=== PATIENT | female | born 1940 | race African-American/Black ===

== ENCOUNTER 2016-10-26 19:26 | Emergency (ER) | payer MEDICARE, MEDICAID ==
[~2016-10-26] VITALS: Ht 165.1 cm; Wt 74.8 kg
[2016-10-26 20:29] VITALS: BP 161/72
[2016-10-26] MEDS ORDERED: Acetaminophen 500mg (ES) tab ORAL ONE (20:30)
--- NOTE | 2016-10-26 20:34 | Emergency Room Report ---
History of Present Illness General Chief Complaint: Medication Refill Source: Patient (Cindy Hassan) Present Illness HPI 76-year-old female presents emergency department complaining of need for medication refill of her steroid eyedrops. Patient states she is out of her medication which she takes 3 times daily to subside chronic eye pain. Patient states she has a history of open angle glaucoma which ultimately took her vision 2 years ago. Patient denies new symptoms at this time denies recent injury or trauma to the eye denies discharge, crusting or foreign body sensation. Denies CP, Palpitations, LOC, AMS, dizziness, Changes in Vision, Sensation, paresthesias, or a sudden severe headache. (Cindy Hassan) Allergies: Coded Allergies: No Known Allergies (Verified Allergy, Unknown, 04/07/08) Patient History Past Medical History: see triage record Past Surgical History: none Pertinent Family History: none Now: No Immunizations: UTD Reviewed Nursing Documentation: PMH: Agreed, PSxH: Agreed (Cindy Hassan) Nursing Documentation-PMH Past Medical History: No History, Except For Hx Hypertension: Yes Hx Diabetes: No Hx Dialysis: Yes - HD:M-W-F, Lt upper arm shunt (Cindy Hassan) Review of Systems All Other Systems: negative except mentioned in HPI (Cindy Hassan) Physical Exam Vital Signs Date Time Temp Pulse Resp B/P Pulse Ox O2 Delivery O2 Flow Rate FiO2 10/26/16 20:04 98.1 88 18 181/91 99 Room Air Sp02 EP Interpretation: reviewed, normal General Appearance: no apparent distress, alert, GCS 15, non-toxic Head: normocephalic, atraumatic Eyes: right eye other - complete vision loss of the right eye x 2 years. , bilateral eye PERRL, bilateral eye normal inspection ENT: hearing grossly normal, normal pharynx, no angioedema, normal voice Neck: full range of motion, supple/symm/no masses Respiratory: chest non-tender, lungs clear, normal breath sounds, speaking full sentences Cardiovascular #1: regular rate, rhythm, no edema Cardiovascular #2: 2+ carotid (R), 2+ carotid (L), 2+ radial (R), 2+ radial (L) , 2+ dorsalis pedis (R), 2+ dorsalis pedis (L) Gastrointestinal: normal bowel sounds, non tender, soft, no guarding, no rebound Rectal: deferred Genitourinary: normal inspection, no CVA tenderness Musculoskeletal: back normal, gait/station normal, normal range of motion, non- tender, no calf tenderness Neurologic: alert, oriented x3, responsive, motor strength/tone normal, sensory intact, speech normal Psychiatric: judgement/insight normal, memory normal, mood/affect normal, no suicidal/homicidal ideation Reflexes: 4+ bicep (R), 4+ bicep (L), 4+ tricep (R), 4+ tricep (L), 4+ knee (R) , 4+ knee (L) Skin: normal color, no rash, warm/dry, well hydrated Lymphatic: no adenopathy (Cindy Hassan) Medical Decision Making PA Attestation Dr. rizvi is my supervising Physician whom patient management has been discussed with. (Cindy Hassan) Medicare Attestation The history of Italia Oropeza has been reviewed and management options for her have been examined and discussed by Dylon Florian. I have personally examined and interviewed the patient. (DYLON FLORIAN M.D.) Diagnostic Impression: Primary Impression: Encounter for medication refill ER Course Pt. 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 pt. reports taking Durezo eye drops in the right eye 3x daily. Ddx considered but are not limited to: drug seeking, OD, closed angle glaucoma, accidental OD. Vital signs: are WNL, pt. is afebrile H&PE are most consistent with need for medication refill. ORDERS: none required at this time, the diagnosis is clinical ED INTERVENTIONS: None required at this time. DISCHARGE: At this time pt. is stable for d/c to home. Will provide printed patient care instructions, and any necessary prescriptions. Care plan and follow up instructions have been discussed with the patient prior to discharge. (Cindy Hassan) Last Vital Signs Date Time Temp Pulse Resp B/P Pulse Ox O2 Delivery O2 Flow Rate FiO2 10/26/16 20:29 98.0 70 18 161/72 99 Room Air (Cindy Hassan) Disposition: HOME, SELF-CARE Condition: Stable Scripts Difluprednate (DUREZOL) 5 Ml Drops 1 DROP OP QID, #5 ML Prov: Cindy Hassan 10/26/16 Patient Instructions: Medicine Refill at the Emergency Department Additional Instructions: Take medications as directed. Follow up with [facility] in 48hours Return sooner to ED if new symptoms occur, or current symptoms become worse. Cindy Hassan Oct 26, 2016 20:34 DYLON FLORIAN M.D. Oct 29, 2016 05:29
[2016-10-26] MEDS ORDERED: DUREZOL5 M1 OP (20:35)
[2016-10-26 20:43] VITALS: BP 142/68
== END 2016-10-26 20:43 | disposition home or self-care (01) ==
LOC: EMR 20:16
DX: Z76.0 Encounter for issue of repeat prescription (principal); I10 Essential (primary) hypertension
CPT/HCPCS: 99283

== ENCOUNTER 2016-11-10 10:30 | Emergency (ER) | payer MEDICARE, MEDICAID ==
[~2016-11-10] VITALS: Ht 165.1 cm; Wt 72.6 kg
[~2016-11-10 10:30] MED LIST: DUREZOL5 M1 OP
[2016-11-10 11:05] VITALS: BP 172/82
--- NOTE | 2016-11-10 12:21 | Diagnostic Imaging Report ---
Indications: Fall, left-sided abdominopelvic trauma and pain Technique: Continuous helical CT imaging of the abdomen and pelvis was performed with automatic exposure control on a Siemens sensation [address] scanner. Axial, coronal, sagittal images reconstructed at 3 mm slice thickness. No oral or IV contrast was administered per requesting physician's order, despite no contraindications listed in either submitted clinical data or tech note, and despite standard protocol to the contrary. CTDI volume(s): 16 mGy Total DLP: 789 mGy-cm Findings: Comparison: None Lack of IV contrast limits evaluation of solid visceral parenchymal. Unenhanced liver, spleen, pancreas, adrenal glands, kidneys demonstrate no obvious focal intrinsic or surrounding abnormality, aside from multiple circumscribed low-attenuation masses in both renal cortices. Liver 2 cm in length, surface contour diffusely nodular. Calcified stones in gallbladder lumen, mural thickening. Scattered arterial mural calcifications. Vascular patency indeterminate. Small hiatal hernia. Moderate distention of stomach. Remainder of gastrointestinal tract nondistended. Multiple left colonic diverticula. No obvious associated acute inflammatory change. No extraluminal gas or fluid collections. Urinary bladder collapsed. Mural thickening not excludable. Remainder visualized abdominopelvic anatomy demonstrates no other obvious acute abnormality. Patchy groundglass opacities dependent portion right lung base. Small bulla left lung base. Heart enlarged. Disc space narrowing with marginal osteophyte formation, vacuum phenomenon lower lumbar spine. 1 cm anterior subluxation of L4 and L5. No associated pars interarticularis defect. No acute fracture identified. impression: Limited examination demonstrating no overt evidence of acute solid visceral injury. Lack of IV contrast limits evaluation, however, and subtle but potentially significant abnormalities may be missed. Examination therefore deemed nondiagnostic for evaluation of acute visceral injury and repeat imaging with IV contrast, per standard protocol, recommended. Hepatomegaly with evidence of cirrhosis Cholelithiasis. Nonspecific mild gallbladder wall thickening. Correlate clinically. Bilateral cortical masses--cysts versus neoplasm Arteriosclerosis Colonic diverticulosis Degenerative spondylosis Nonspecific groundglass opacity right lung base--atelectasis versus edema versus inflammation
[2016-11-10 12:32] VITALS: BP 162/73
[2016-11-10] MEDS ORDERED: Tylenol #3 tab (300mg/30mg) ORAL ONE (12:45)
[2016-11-10 12:47] VITALS: BP 162/73
[2016-11-10] MEDS ORDERED: ACETAMINOPHEN-1 EAC1 ORAL (12:48)
--- NOTE | 2016-11-11 15:10 | Emergency Room Report ---
History of Present Illness General Chief Complaint: Multiple Trauma/Fall Source: Patient Present Illness HPI 76-year-old female presents to ED complaining of left hip pain. States one week ago she had a mechanical trip and fall on the sidewalk, landing on her left hip. Patient notes increased pain in the left hip and unable to walk since. Pain as throbbing, 10 out of 10, radiating down the left leg. No other aggravating relieving factors. Denies any other injuries. 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 Hx Hypertension: Yes Hx Pacemaker: No Hx Asthma: No Hx COPD: No Hx Diabetes: No Hx Cancer: No Hx Gastrointestinal Problems: No Hx Dialysis: Yes - HD:M-W-F, Lt upper arm shunt History Of Psychiatric Problem: No Hx Neurological Problems: No Hx Cerebrovascular Accident: No Hx Seizures: No Review of Systems All Other Systems: negative except mentioned in HPI Physical Exam Vital Signs Date Time Temp Pulse Resp B/P Pulse Ox O2 Delivery O2 Flow Rate FiO2 11/10/16 11:01 98.4 74 18 172/82 99 Room Air Sp02 EP Interpretation: reviewed, normal General Appearance: no apparent distress, alert, GCS 15, non-toxic Head: normocephalic Eyes: bilateral eye PERRL, bilateral eye normal inspection ENT: normal ENT inspection Neck: normal inspection Respiratory: normal inspection Cardiovascular #1: normal inspection Gastrointestinal: normal inspection Rectal: deferred Genitourinary: no CVA tenderness Musculoskeletal: pelvis stable, other - L hip pain Neurologic: alert, oriented x3, responsive, motor strength/tone normal, sensory intact, speech normal Psychiatric: normal inspection Skin: normal inspection Lymphatic: normal inspection Medical Decision Making Diagnostic Impression: Primary Impression: Contusion, hip and thigh Qualified Codes: S70.02XA - Contusion of left hip, initial encounter; S70.12XA - Contusion of left thigh, initial encounter ER Course Hospital Course 76-year-old female presents to ED with left hip and thigh pain s/p trip and fall Differential diagnoses include: Fracture, dislocation, sprain, contusion Clinical course Patient placed on stretcher. After initial history and physical, I ordered pain medications and CT pelvis and x-ray of left femur CT read shows no acute fracture/dislocation. On reassessment pain is improved Diagnosis -left hip and thigh contusion Stable and discharged to home with prescription for tylenol #3. apply ice, keep elevated. weight bear as tolerated. Followup with PMD. Return to ED if symptoms recur or worsen Other X-Ray Diagnostic Results Other X-Ray Diagnostic Results : X-Ray Ordered: L femur EP Interpretation: Yes Findings: no fractures, no dislocation, no soft tissue swelling Number of Views: 3 CT/MRI/US Diagnostic Results CT/MRI/US Diagnostic Results : Imaging Test Ordered: CT Pelvis Impression no acute process Last Vital Signs Date Time Temp Pulse Resp B/P Pulse Ox O2 Delivery O2 Flow Rate FiO2 11/10/16 12:47 98.4 78 18 162/73 99 Room Air Status: improved Disposition: HOME, SELF-CARE Condition: Stable Scripts Acetaminophen With Codeine (T#3) (TYLENOL #3 TAB*) Y Tab 1 TAB ORAL Q8H Y for For Pain, #20 TAB Prov: HANS SOLOMON M.D. 11/10/16 Patient Instructions: Contusion, [id number] HANS SOLOMON M.D. Nov 11, 2016 15:10
--- NOTE | 2016-11-12 11:45 | Diagnostic Imaging Report ---
Indications: Fall, left thigh injury and pain Technique: 2 views left thigh. Findings: Comparison: None No fracture, dislocation, joint space widening , surrounding soft tissue swelling/foreign body/other abnormality, or other acute changes are identified. Scattered arterial mural calcifications are present. IMPRESSION: No evidence of acute injury to the left thigh. Arteriosclerosis
== END 2016-11-10 12:52 | disposition home or self-care (01) ==
LOC: EMR 11:53
DX: S70.02XA Contusion of left hip, initial encounter (principal); S70.12XA Contusion of left thigh, initial encounter; W01.0XXA Fall on same level from slipping, tripping and stumbling without subsequent striking against object, initial encounter; Y92.480 Sidewalk as the place of occurrence of the external cause; I10 Essential (primary) hypertension; H54.41 Blindness, right eye, normal vision left eye; K74.60 Unspecified cirrhosis of liver; K80.20 Calculus of gallbladder without cholecystitis without obstruction; K57.30 Diverticulosis of large intestine without perforation or abscess without bleeding; M47.816 Spondylosis without myelopathy or radiculopathy, lumbar region; R91.8 Other nonspecific abnormal finding of lung field
CPT/HCPCS: 74176; 99284

== ENCOUNTER 2017-03-10 12:51 | Emergency (ER) | payer MEDICARE, MEDICAID ==
[~2017-03-10] VITALS: Ht 162.6 cm; Wt 72.6 kg
[~2017-03-10 12:51] MED LIST changes: +ACETAMINOPHEN-1 EAC1 ORAL
[2017-03-10 13:00] VITALS: BP 176/79
[2017-03-10] MEDS ORDERED: Morphine Sulfate 4mg/ml Inj IVP ONE ×2 (13:30→17:00)
[2017-03-10] MEDS ORDERED: Famotidine 20 MG/ 2ML VIAL IVP ONE (13:30)
[2017-03-10 13:34] LABS: MEAN CORPUSCULAR HEMOGLOBIN 34.5 PG (27.0-31.0); MEAN CORPUSCULAR HGB CONC 30.6 G/DL (32.0-36.0); MEAN CORPUSCULAR VOLUME 113 FL (80-99); MEAN PLATELET VOLUME 9.1 FL (6.5-10.1); PLATELET COUNT 130 K/UL (150-450); RED BLOOD COUNT 3.47 M/UL (4.20-5.40); RED CELL DISTRIBUTION WIDTH 17.1 % (11.6-14.8)
[2017-03-10 13:57] LABS: TROPONIN I < 0.30 ng/mL (<=0.30)
[2017-03-10 14:11] LABS: ANISOCYTOSIS 1+; BAND NEUTROPHILS % (MANUAL) 1 % (0-8); BASOPHILS % (MANUAL) 0 % (0-2); EOSINOPHILS % (MANUAL) 0 % (0-3); HYPOCHROMASIA 1+; LYMPHOCYTES % (MANUAL) 20 % (20-45); MACROCYTES 1+; NEUTROPHILS % (MANUAL) 70 % (45-75); PLATELET ESTIMATE DECREASED; PLATELET MORPHOLOGY NORMAL; TOTAL CELLS COUNTED 100
[2017-03-10 15:00] VITALS: BP 164/79
[2017-03-10 15:18] LABS: ALANINE AMINOTRANSFERASE 22 U/L (3-33); ALBUMIN/GLOBULIN RATIO 0.9 (1.0-2.7); ANION GAP 16 (5-15); ASPARTATE AMINO TRANSFERASE 37 U/L (5-40); CALCIUM 8.4 mg/dL (8.6-10.2); CARBON DIOXIDE 30 mEQ/L (20-30); CHLORIDE 98 mEQ/L (98-107); CREATININE 6.8 mg/dL (0.5-0.9); HEMOLYSIS 8; LIPASE 36 U/L (< 60); POTASSIUM 5.2 mEQ/L (3.4-4.9); SODIUM 144 mEQ/L (135-145); TOTAL PROTEIN 7.1 g/dL (6.6-8.7)
[2017-03-10 15:28] LABS: CKMB 2.1 ng/mL (< 3.8)
[2017-03-10] MEDS ORDERED: Sodium Polystyrene Sulfonate 15gm Powder ORAL ONE (17:00)
[2017-03-10 17:48] VITALS: BP 132/68
--- NOTE | 2017-03-10 19:08 | Emergency Room Report ---
History of Present Illness General Chief Complaint: Abdominal Pain Source: Patient Present Illness HPI 77-year-old female presents to ED for evaluation. States that for one day she' s had abdominal pain with vomiting. Started today. Feels her stomach is distended. She is passing gas. Denies fevers or chills. Denies chest pain. Notes some shortness of breath. Patient states she gets dialysis Sunday and Sunday. No other aggravating relieving factors. 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 Hx Hypertension: Yes Hx Pacemaker: No Hx Asthma: No Hx COPD: No Hx Diabetes: No Hx Cancer: No Hx Gastrointestinal Problems: No Hx Dialysis: Yes - HD:M-W-F, Lt upper arm shunt Hx Neurological Problems: No Hx Cerebrovascular Accident: No Hx Seizures: No Review of Systems All Other Systems: negative except mentioned in HPI Physical Exam Vital Signs Date Time Temp Pulse Resp B/P Pulse Ox O2 Delivery O2 Flow Rate FiO2 03/10/17 12:56 98.4 86 16 178/79 96 Room Air Sp02 EP Interpretation: reviewed, normal General Appearance: no apparent distress, alert, GCS 15, non-toxic Head: normocephalic, atraumatic Eyes: bilateral eye PERRL, bilateral eye normal inspection ENT: hearing grossly normal, normal pharynx, no angioedema, normal voice Neck: full range of motion, supple/symm/no masses Respiratory: chest non-tender, lungs clear, normal breath sounds, speaking full sentences Cardiovascular #1: regular rate, rhythm, no edema Cardiovascular #2: 2+ carotid (R), 2+ carotid (L), 2+ radial (R), 2+ radial (L) , 2+ dorsalis pedis (R), 2+ dorsalis pedis (L) Gastrointestinal: normal bowel sounds, soft, no guarding, distended, tenderness Rectal: deferred Genitourinary: normal inspection, no CVA tenderness Musculoskeletal: back normal, gait/station normal, normal range of motion, non- tender Neurologic: alert, oriented x3, responsive, motor strength/tone normal, sensory intact, speech normal Psychiatric: judgement/insight normal, memory normal, mood/affect normal, no suicidal/homicidal ideation Reflexes: 3+ bicep (R), 3+ bicep (L), 3+ tricep (R), 3+ tricep (L), 3+ knee (R) , 3+ knee (L) Skin: normal color, no rash, warm/dry, well hydrated Lymphatic: no adenopathy Medical Decision Making Diagnostic Impression: Primary Impression: Ileus ER Course Hospital Course 77-year-old female presents to ED with abdominal distention, pain and vomiting Differential diagnosis includes-appendicitis, cholecystitis, small bowel obstruction, gastritis, Clinical course Patient placed on stretcher. After initial history and physical I ordered labs , IV fluids, pain medications and CT scan Labs - no leukocytosis, BUN/Cr elevated, trop negative, K 5.2 CT scan shows distended GB with stones. surrounding fluid ? ascites vs cholecystitis. ileus EKG - NSR, twave inversions in lateral leads, no acute ischemic changes CXR - pulmonary congestion Discussed with nephrology regarding the potassium. He agreed that Kayexalate is sufficient at this time given patient completed dialysis yesterday. I discussed findings of the CT with patient namely the possible cholecystitis. Patient has normal LFTs and patient is not experiencing right upper quadrant pain. Patient's pain is diffuse with distention. More likely due to the ileus noted on CT. I recommended patient be admitted. Patient states she prefers to be discharged at this time Patient states she wishes to go home. Understands the risks of leaving. Patient has competency to make her own decisions. Signed AMA form. Patient given Kayexalate in ED. Given additional pain medication I feel this is a highly complex case requiring extensive working including EKG/ Rhythm strip, Xray/CT/US, Blood/urine lab work, repeat exams while in ED, and administration of strong opiates/narcotics for pain control, admission to hospital or close patient follow up. Diagnosis - ileus patient left AMA Labs Test 03/10/17 13:20 03/10/17 14:45 White Blood Count 5.0 K/UL (4.8-10.8) Red Blood Count 3.47 M/UL (4.20-5.40) Hemoglobin 12.0 G/DL (12.0-16.0) Hematocrit 39.1 % (37.0-47.0) Mean Corpuscular Volume 113 FL (80-99) Mean Corpuscular Hemoglobin 34.5 PG (27.0-31.0) Mean Corpuscular Hemoglobin Concent 30.6 G/DL (32.0-36.0) Red Cell Distribution Width 17.1 % (11.6-14.8) Platelet Count 130 K/UL (150-450) Mean Platelet Volume 9.1 FL (6.5-10.1) Neutrophils (%) (Auto) % (45.0-75.0) Lymphocytes (%) (Auto) % (20.0-45.0) Monocytes (%) (Auto) % (1.0-10.0) Eosinophils (%) (Auto) % (0.0-3.0) Basophils (%) (Auto) % (0.0-2.0) Differential Total Cells Counted 100 Neutrophils % (Manual) 70 % (45-75) Lymphocytes % (Manual) 20 % (20-45) Monocytes % (Manual) 9 % (1-10) Eosinophils % (Manual) 0 % (0-3) Basophils % (Manual) 0 % (0-2) Band Neutrophils 1 % (0-8) Platelet Estimate Decreased Platelet Morphology Normal Hypochromasia 1+ Anisocytosis 1+ Macrocytosis 1+ Troponin I < 0.30 ng/mL (<=0.30) Sodium Level 144 mEQ/L (135-145) Potassium Level 5.2 mEQ/L (3.4-4.9) Chloride Level 98 mEQ/L (98-107) Carbon Dioxide Level 30 mEQ/L (20-30) Anion Gap 16 (5-15) Blood Urea Nitrogen 30 mg/dL (7-23) Creatinine 6.8 mg/dL (0.5-0.9) Estimat Glomerular Filtration Rate mL/min (>60) Glucose Level 94 mg/dL (74-106) Calcium Level 8.4 mg/dL (8.6-10.2) Total Bilirubin 0.6 mg/dL (0.0-1.2) Aspartate Amino Transf (AST/SGOT) 37 U/L (5-40) Alanine Aminotransferase (ALT/SGPT) 22 U/L (3-33) Alkaline Phosphatase 179 U/L (35-104) Creatine Kinase MB 2.1 ng/mL (< 3.8) Total Protein 7.1 g/dL (6.6-8.7) Albumin 3.5 g/dL (3.5-5.2) Globulin 3.6 g/dL Albumin/Globulin Ratio 0.9 (1.0-2.7) Lipase 36 U/L (< 60) EKG Diagnostic Results Rate: normal Rhythm: NSR ST Segments: other - twave inversions in lateral leads ASA given to the pt in ED: No Rhythm Strip Diag. Results EP Interpretation: yes Rhythm: NSR, no PVC's, no ectopy Chest X-Ray Diagnostic Results EP Interpretation: Yes Findings: no pneumothorax, no acute cardiopulmonary disease, other - pulmonary congestion Number of Views: 1 CT/MRI/US Diagnostic Results CT/MRI/US Diagnostic Results : Imaging Test Ordered: CT A/P Impression distended GB with gallstones. surrounding fluid - ascites vs cholecystitis. ileus. Last Vital Signs Date Time Temp Pulse Resp B/P Pulse Ox O2 Delivery O2 Flow Rate FiO2 03/10/17 17:48 98.2 68 13 132/68 95 Room Air Status: unchanged Disposition: AGAINST MEDICAL ADVICE Condition: Stable HANS SOLOMON M.D. March 10, 2017 19:08
--- NOTE | 2017-03-11 09:18 | Diagnostic Imaging Report ---
Indications: Abdominal pain and distention, nausea and vomiting Technique: Continuous helical CT imaging of the abdomen and pelvis was performed with automatic exposure control following administration of nonionic IV contrast only, on a Siemens sensation [address] scanner. Axial and coronal images were reconstructed at 5 mm slice thickness. No oral contrast was administered per requesting physician's order, presumably due to vomiting. CTDI volume(s): 17 mGy Total DLP: 913 mGy-cm Findings: Comparison: 11/10/2016 Lack of oral contrast limits evaluation of gastrointestinal tract. Small hiatal hernia. Multiple small bowel loops demonstrate varying degrees of distention and fluid content. Associated mural thickening of one or more loops not excludable. No obvious discrete transition point. Appendix unremarkable. Gas and feces throughout nondilated colon. Multiple diverticula in descending and sigmoid colon. Associated mild segmental mural thickening within the sigmoid colon not excludable. No adjacent stranding, associated extraluminal gas or fluid collections. Minimal ascites adjacent to liver, spleen, gallbladder. Liver again demonstrates diffuse surface contour nodularity. No obvious focal lesion identified. Gallbladder distended and contains multiple small calcified stones. No obvious mural thickening. Pancreatic duct is mildly, diffusely prominent, measuring up to 4 mm diameter. Bile ducts not overtly dilated. No obvious associated stone or mass identified. Spleen remains upper limits of normal in size. No focal lesions identified. Both kidneys are atrophic with multiple circumscribed low attenuation cortical masses. One of these masses, 2.7 cm emanating from the posterior upper pole cortex of left kidney, and demonstrates mildly increased and heterogeneous attenuation relative to the rest. Prominent arterial mural calcifications. Significant bilateral renal artery stenoses not excludable. Remainder visualized abdominopelvic anatomy demonstrates no other obvious acute abnormality. Heart remains enlarged. Linear and patchy consolidative opacities have developed in both lung bases, right greater than left. Narrowing of the L4-5 disc space again noted with 7 mm anterior spondylolisthesis, facet sclerosis and hypertrophy, apparent spinal stenosis. Fractures of the left superior and inferior ischiopubic rami now noted with some periosteal callus formation, no adjacent soft tissue swelling. Impression: Small bowel findings as described, not overtly obstructive in appearance, most compatible with ileus, may reflect underlying enteritis Cirrhosis with stigmata of portal hypertension including borderline splenomegaly, ascites Gallbladder distention with stones. No obvious mural thickening. Adjacent fluid probably represents ascites. Correlate clinically. Mild pancreatic duct dilation, etiology indeterminate Bilateral renal atrophy with multiple cortical cysts, reflect end-stage renal disease. Posterior upper pole left renal lesion most likely septated/proteinaceous cyst. Neoplasm not excludable. Ultrasound correlation recommended. Colonic diverticulosis Arteriosclerosis Pulmonary bibasal subsegmental atelectasis. Superimposed focal pneumonia right lung base not excludable Cardiomegaly L4-5 degenerative spondylosis with grade 1 anterior spondylolisthesis, apparent spinal stenosis Interval development of left superior and inferior ischiopubic ramus fractures, with some evidence of healing, nonacute Written preliminary report placed in PACS 03/10/2017 at 1648
--- NOTE | 2017-03-11 09:41 | Diagnostic Imaging Report ---
Indications: Shortness of breath Technique: Portable AP chest Findings: Comparison: None Cardiac silhouette enlarged. Pulmonary vascular redistribution. Mild bilateral interstitial prominence. Discrete linear density right lung base. No pleural abnormality. Aortic arch calcified. IMPRESSION: Findings compatible with mild congestive heart failure Superimposed subsegmental atelectasis versus scarring right lung base Aortosclerosis
--- NOTE | 2017-03-11 09:51 | Diagnostic Imaging Report ---
Indications: Abdominal distention. Technique: AP view of the abdomen Findings: Comparison: None Paucity of small bowel gas. Gas and feces throughout nondilated colon and rectum.. Prominent arterial mural calcifications. Small rounded calcifications in pelvis compatible with phleboliths.. No abnormal calcific or soft tissue densities are demonstrated. Degenerative changes suggested in the lumbar spine.. IMPRESSION: Paucity of small bowel gas, nonspecific. Dilated fluid-filled bowel in the setting of either ileus or obstruction not excludable. Correlate clinically. No other evidence of acute abdominopelvic disease Arteriosclerosis Degenerative spondylosis.
== END 2017-03-10 17:52 | disposition left against medical advice (07) ==
LOC: EMR 13:15
DX: K56.7 Ileus, unspecified (principal); R06.02 Shortness of breath; I10 Essential (primary) hypertension; H54.41 Blindness, right eye, normal vision left eye; Z99.2 Dependence on renal dialysis; N28.9 Disorder of kidney and ureter, unspecified; I51.7 Cardiomegaly; M47.896 Other spondylosis, lumbar region; M43.16 Spondylolisthesis, lumbar region; J98.11 Atelectasis; I70.90 Unspecified atherosclerosis; K57.90 Diverticulosis of intestine, part unspecified, without perforation or abscess without bleeding; K80.80 Other cholelithiasis without obstruction; N28.1 Cyst of kidney, acquired
CPT/HCPCS: 36415; 71010; 74000; 74177; 80053; 82553; 83690; 84484; 85007; 85025; 93005; 96374; 96375; 99284; J2270; J2405; J7040; Q9967; S0028

== ENCOUNTER 2018-10-22 12:21 | Inpatient (IN) | payer MEDICARE, MEDICAID ==
[~2018-10-22] VITALS: Ht 162.6 cm; Wt 61.5 kg
--- NOTE | 2018-10-22 12:44 | NUR ---
ED Nurse Note: Pt walked in due to SOB since this morning A + O x4. Ambulatory. Hx of rt eye blindness. Has dialysis M, W, F. Fistula located on the upper left arm. when she walked in, sating at 83%. Initiated 2L of oxygen via nasal cannula. O2 sat at 96%.
--- NOTE | 2018-10-22 12:56 | Emergency Room Report ---
History of Present Illness General Chief Complaint: Dyspnea/Respdistress Source: Patient Present Illness HPI Patient presents with complaints of shortness of breath Reports that she had dialysis on Sunday Is unclear regarding the specific days of her dialysis Over the past night however patient having progressive worsening of shortness of breath Patient has also had a cough with some phlegm production denies any fevers or chills denies any neck pain Denies any abdominal pain Denies any recent travel Allergies: Coded Allergies: No Known Allergies (Verified Allergy, Unknown, 04/07/08) Patient History Past Medical History: see triage record Pertinent Family History: none Now: No Reviewed Nursing Documentation: PMH: Agreed; PSxH: Agreed Nursing Documentation-PMH Past Medical History: No History, Except For Hx Cardiac Problems: Yes - Right eye blindness Hx Hypertension: Yes Hx Pacemaker: No Hx Asthma: No Hx COPD: No Hx Diabetes: No Hx Cancer: No Hx Gastrointestinal Problems: No Hx Dialysis: Yes - HD:M-W-F, Lt upper arm shunt Hx Neurological Problems: No Hx Cerebrovascular Accident: No Hx Seizures: No Review of Systems All Other Systems: negative except mentioned in HPI Physical Exam Vital Signs Date Time Temp Pulse Resp B/P (MAP) Pulse Ox O2 Delivery O2 Flow Rate FiO2 10/22/18 12:41 99.9 100 23 184/120 89 Room Air Sp02 EP Interpretation: reviewed, normal General Appearance: mild distress - Mildly tachypneic Head: normocephalic, atraumatic Eyes: bilateral eye PERRL, bilateral eye EOMI ENT: hearing grossly normal, normal pharynx, TMs + canals normal, uvula midline Neck: full range of motion, supple, no meningismus, no bony tend Respiratory: no respiratory distress, no retraction, no accessory muscle use, crackles - Bilaterally, tachypneic Cardiovascular #1: normal peripheral pulses, regular rate, rhythm, no edema, no gallop, no JVD, no murmur Gastrointestinal: normal bowel sounds, non tender, soft, no mass, no organomegaly, non-distended, no guarding, no hernia, no pulsatile mass, no rebound Genitourinary: no CVA tenderness Musculoskeletal: normal inspection Neurologic: oriented x3, responsive, 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 nml as tested, motor strength/ tone normal, sensory intact Psychiatric: mood/affect normal Skin: normal color, no rash, warm/dry, palpation normal Lymphatic: normal inspection, no adenopathy Medical Decision Making Diagnostic Impression: Primary Impression: Dyspnea Additional Impressions: Pulmonary congestion Renal failure ER Course Patient is a fairly complex patient with multiple differential to consideration including but not limited to cardiac cardiopulmonary and vascular emergencies Patient's blood work reveals elevated potassium level Kidney function is consistent with renal failure,, patient initially refused chest x-ray Requesting breathing treatment This was provided Patient eventually did obtain chest x-ray We also had to have the patient talk to family before cough rating Patient appears to have pulmonary congestion consistent with her renal failure requiring more urgent dialysis and is admitted for further inpatient care Labs Test 10/22/18 12:50 White Blood Count 5.8 K/UL (4.8-10.8) Red Blood Count 3.32 M/UL (4.20-5.40) Hemoglobin 10.2 G/DL (12.0-16.0) Hematocrit 35.0 % (37.0-47.0) Mean Corpuscular Volume 105 FL (80-99) Mean Corpuscular Hemoglobin 30.7 PG (27.0-31.0) Mean Corpuscular Hemoglobin Concent 29.1 G/DL (32.0-36.0) Red Cell Distribution Width 19.5 % (11.6-14.8) Platelet Count 119 K/UL (150-450) Mean Platelet Volume 7.3 FL (6.5-10.1) Neutrophils (%) (Auto) 59.1 % (45.0-75.0) Lymphocytes (%) (Auto) 26.0 % (20.0-45.0) Monocytes (%) (Auto) 13.2 % (1.0-10.0) Eosinophils (%) (Auto) 0.4 % (0.0-3.0) Basophils (%) (Auto) 1.4 % (0.0-2.0) Sodium Level 139 MMOL/L (136-145) Potassium Level 5.5 MMOL/L (3.5-5.1) Chloride Level 104 MMOL/L (98-107) Carbon Dioxide Level 25 MMOL/L (21-32) Anion Gap 10 mmol/L (5-15) Blood Urea Nitrogen 34 mg/dL (7-18) Creatinine 6.9 MG/DL (0.55-1.30) Estimat Glomerular Filtration Rate mL/min (>60) Glucose Level 76 MG/DL (74-106) Calcium Level 8.1 MG/DL (8.5-10.1) Total Bilirubin 0.4 MG/DL (0.2-1.0) Aspartate Amino Transf (AST/SGOT) 49 U/L (15-37) Alanine Aminotransferase (ALT/SGPT) 14 U/L (12-78) Alkaline Phosphatase 129 U/L (46-116) Total Creatine Kinase 72 U/L (26-308) Creatine Kinase MB 1.4 NG/ML (0.0-3.6) Creatine Kinase MB Relative Index 1.9 Troponin I 0.062 ng/mL (0.000-0.056) Pro-B-Type Natriuretic Peptide > 68182 pg/mL (0-125) Total Protein 8.3 G/DL (6.4-8.2) Albumin 2.8 G/DL (3.4-5.0) Globulin 5.5 g/dL Albumin/Globulin Ratio 0.5 (1.0-2.7) EKG Diagnostic Results Rate: normal Rhythm: NSR ST Segments: other - nonspecific ST T wave changes Rhythm Strip Diag. Results EP Interpretation: yes Rate: 77 Rhythm: NSR, no PVC's, no ectopy Chest X-Ray Diagnostic Results Chest X-Ray Diagnostic Results : Chest X-Ray Ordered: Yes # of Views/Limited/Complete: 1 View Indication: Shortness of Breath EP Interpretation: Yes Interpretation: no consolidation, no pneumothorax, other - Small left-sided effusion, pulmonary costion Impression: Other - Pulmonary congestion Electronically Signed by: Yoana Short DO Last Vital Signs Date Time Temp Pulse Resp B/P (MAP) Pulse Ox O2 Delivery O2 Flow Rate FiO2 10/22/18 12:41 99.9 100 23 184/120 89 Room Air Status: improved Disposition: ADMITTED INPATIENT Condition: Serious Referrals: NON PHYSICIAN (PCP) Yoana Short DO Oct 22, 2018 12:56
--- NOTE | 2018-10-22 12:56 | NUR ---
ED Nurse Note: Blood has been collected and sent to lab.
[2018-10-22] MEDS ORDERED: Nitroglycerin 2% oint pkt TOPIC ONE (13:00)
[2018-10-22 13:06] VITALS: BP 195/92
--- NOTE | 2018-10-22 13:09 | NUR ---
ED Nurse Note: Pt refused CXR. Will notify
[2018-10-22] MEDS ORDERED: Ipratropium 0.02% Inh Soln 2.5ml UD HHN ONE (13:15)
[2018-10-22] MEDS ORDERED: Albuterol ud Inhalation HHN ONE (13:15)
[2018-10-22 13:21] LABS: BASOPHILS % (AUTO) 1.4 % (0.0-2.0); EOSINOPHILS % (AUTO) 0.4 % (0.0-3.0); HEMOGLOBIN 10.2 G/DL (12.0-16.0); MEAN CORPUSCULAR VOLUME 105 FL (80-99); MONOCYTES % (AUTO) 13.2 % (1.0-10.0); NEUTROPHILS % (AUTO) 59.1 % (45.0-75.0); PLATELET COUNT 119 K/UL (150-450); RED BLOOD COUNT 3.32 M/UL (4.20-5.40); RED CELL DISTRIBUTION WIDTH 19.5 % (11.6-14.8); WHITE BLOOD COUNT 5.8 K/UL (4.8-10.8)
--- NOTE | 2018-10-22 13:32 | NUR ---
ED Nurse Note: Breathing tx currently being completed.
[2018-10-22 13:39] LABS: ANION GAP 10 mmol/L (5-15); BLOOD UREA NITROGEN 34 mg/dL (7-18); CALCIUM 8.1 MG/DL (8.5-10.1); CARBON DIOXIDE 25 MMOL/L (21-32); CHLORIDE 104 MMOL/L (98-107); CREATININE 6.9 MG/DL (0.55-1.30); POTASSIUM 5.5 MMOL/L (3.5-5.1); SODIUM 139 MMOL/L (136-145)
--- NOTE | 2018-10-22 13:47 | NUR ---
ED Nurse Note: Spoke to dtr Vale on the phone and notified her of her mom's condition. Per dtr, she wants her mom to stay at the hopsital. She spoke with her mom. Mom will stay.
[2018-10-22 13:52] LABS: ALANINE AMINOTRANSFERASE 14 U/L (12-78); ALBUMIN 2.8 G/DL (3.4-5.0); ALBUMIN/GLOBULIN RATIO 0.5 (1.0-2.7); ALKALINE PHOSPHATASE 129 U/L (46-116); ASPARTATE AMINO TRANSFERASE 49 U/L (15-37); BILIRUBIN,TOTAL 0.4 MG/DL (0.2-1.0); CKMB 1.4 NG/ML (0.0-3.6); CREATINE KINASE 72 U/L (26-308)
--- NOTE | 2018-10-22 13:52 | NUR ---
ED Nurse Note: Gave telephone report to GLADIS Matthews. waiting for admission packet and bed to be ready. Will continue to monitor.
--- NOTE | 2018-10-22 13:55 | NUR ---
ED Nurse Note: Notified radiology of pt agreeing to CXR once more.
--- NOTE | 2018-10-22 14:02 | NUR ---
ED Nurse Note: Xray at the bedside.
--- NOTE | 2018-10-22 14:09 | NUR ---
ED Nurse Note: Tried sending pt up, bed unavailable.
--- NOTE | 2018-10-22 14:13 | NUR ---
ED Nurse Note: As per ERMD, okay for pt to go up to unit. Waiting for bed to be available.
--- NOTE | 2018-10-22 14:30 | NUR ---
NURSE NOTES: Received patient via gurney, Report given by GLADIS Hilton. Pt is lying down on bed, weak but in stable condition.Pt is awake, alert, and oriented x4. Pt is on 2 liter Nasal Cannula and breathing is even and unlabored. No signs and symptoms of acute distress at this time. Belongings checked at bed side. Bed is in lowest position with brake engaged, side rails up x2, and bed alarm on. Call light within reach. Will contact attending doctor for orders.
--- NOTE | 2018-10-22 14:31 | NUR ---
ED Nurse Note: Transferred pt up to tele unit. No acute distress noted. Left w/ all of her belongings.
--- NOTE | 2018-10-22 15:00 | NUR ---
NURSE NOTES: patient received. patient in no acute distress at this timem alyssa complains of 10/10 pain at this time. i called Dr. loving who ordered morphine for patient . patient bed in lowest position and locked. call light within reach. will continue to monitor Addendum: 10/23/18 at 0604 by VANITA GILBERT RN wrong time.
[2018-10-22] MEDS ORDERED: Metoprolol 25mg tab ORAL SCH ×2 (15:15→16:30)
--- NOTE | 2018-10-22 15:20 | Consultation ---
Consult Note Consult Note Chief Complaint: Dyspnea/Respdistress HPI Patient presents with complaints of shortness of breath Reports that she had dialysis on Sunday Is unclear regarding the specific days of her dialysis Over the past night however patient having progressive worsening of shortness of breath Patient has also had a cough with some phlegm production denies any fevers or chills denies any neck pain Denies any abdominal pain Denies any recent travel No Known Allergies (Verified Allergy, Unknown, 04/07/08) Hx Cardiac Problems: Yes - Right eye blindness Hx Hypertension: Yes Hx Dialysis: Yes - HD:M-W-F, Lt upper arm shunt examined appeard comfortable data reviewed complains of chronic back pain more than SOB Assessment/Plan Mild CHF ESRD Anemia of CKD Elevated troponin Hypertensive kidney disease ASA Renal diet HD in am 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
--- NOTE | 2018-10-22 15:25 | History and Physical ---
History of Present Illness General Date patient seen: Oct 22, 2018 Time patient seen: 15:09 Reason for Hospitalization: Dyspnea/Respdistress Present Illness HPI 78 yo female with h/o esrd on hd presents with SOB. States patient her last HD was on Sunday. Patient is poor historian. Patient has been having progressive sob over the past 2 days. Admits to coughs with white sputum productiong. Denies fevers/chills/nausea/vomiting/abd pain/cp. CXR reviewed showing pulm vasc congestion. nephrology consulted for HD by ED social hx reviewed, denies smoking, alcohol or drug use code status reviewed: full code past fam hx reviewed, denies any sig past fam hx Allergies: Coded Allergies: No Known Allergies (Verified Allergy, Unknown, 04/07/08) Medication History Scheduled Difluprednate (Durezol), 1 DROP OP QID Scheduled PRN Acetaminophen With Codeine (T#3) (Tylenol #3 Tab*), 1 TAB ORAL Q8H PRN for For Pain Patient History History Provided By: Patient, Medical Record Healthcare decision maker Resuscitation status Full Code Advanced Directive on File Review of Systems ROS Narrative 14 point ROS reviewed and negative except per the above HPI Physical Exam General Appearance: WD/WN, alert, mild distress Lines, tubes and drains: peripheral HEENT: normocephalic, atraumatic, mucous membranes moist, PERRL Neck: non-tender, normal alignment, supple, normal inspection Respiratory/Chest: chest wall non-tender, lungs clear, other - mild crackles appreciated b/l lung kwong Cardiovascular/Chest: normal peripheral pulses, normal rate, regular rhythm Abdomen: normal bowel sounds, non tender, soft, no organomegaly, no mass Extremities: normal range of motion, non-tender, normal inspection Skin Exam: normal pigmentation, warm/dry Neurologic: health plan specialist II-XII grossly normal, no motor/sensory deficits, alert, oriented x 3, responsive, normal mood/affect Last 24 Hour Vital Signs Date Time Temp Pulse Resp B/P (MAP) Pulse Ox O2 Delivery O2 Flow Rate FiO2 10/22/18 14:32 98.1 102 20 182/73 99 Nasal Cannula 2.0 10/22/18 13:50 99 16 99 Nasal Cannula 2.0 28 10/22/18 13:21 28 10/22/18 13:21 102 18 97 Nasal Cannula 2.0 28 10/22/18 13:21 102 18 Nasal Cannula 2.0 95 10/22/18 13:06 101 30 Nasal Cannula 2.0 95 10/22/18 13:06 99.8 101 30 95 Nasal Cannula 2.0 10/22/18 13:04 195/92 10/22/18 12:41 99.9 100 23 184/120 89 Room Air Laboratory Tests Test 10/22/18 12:50 White Blood Count 5.8 K/UL (4.8-10.8) Red Blood Count 3.32 M/UL (4.20-5.40) L Hemoglobin 10.2 G/DL (12.0-16.0) L Hematocrit 35.0 % (37.0-47.0) L Mean Corpuscular Volume 105 FL (80-99) H Mean Corpuscular Hemoglobin 30.7 PG (27.0-31.0) Mean Corpuscular Hemoglobin Concent 29.1 G/DL (32.0-36.0) L Red Cell Distribution Width 19.5 % (11.6-14.8) H Platelet Count 119 K/UL (150-450) L Mean Platelet Volume 7.3 FL (6.5-10.1) Neutrophils (%) (Auto) 59.1 % (45.0-75.0) Lymphocytes (%) (Auto) 26.0 % (20.0-45.0) Monocytes (%) (Auto) 13.2 % (1.0-10.0) H Eosinophils (%) (Auto) 0.4 % (0.0-3.0) Basophils (%) (Auto) 1.4 % (0.0-2.0) Sodium Level 139 MMOL/L (136-145) Potassium Level 5.5 MMOL/L (3.5-5.1) H Chloride Level 104 MMOL/L (98-107) Carbon Dioxide Level 25 MMOL/L (21-32) Anion Gap 10 mmol/L (5-15) Blood Urea Nitrogen 34 mg/dL (7-18) H Creatinine 6.9 MG/DL (0.55-1.30) H Estimat Glomerular Filtration Rate mL/min (>60) Glucose Level 76 MG/DL (74-106) Calcium Level 8.1 MG/DL (8.5-10.1) L Total Bilirubin 0.4 MG/DL (0.2-1.0) Aspartate Amino Transf (AST/SGOT) 49 U/L (15-37) H Alanine Aminotransferase (ALT/SGPT) 14 U/L (12-78) Alkaline Phosphatase 129 U/L (46-116) H Total Creatine Kinase 72 U/L (26-308) Creatine Kinase MB 1.4 NG/ML (0.0-3.6) Creatine Kinase MB Relative Index 1.9 Troponin I 0.062 ng/mL (0.000-0.056) Pro-B-Type Natriuretic Peptide > 77356 pg/mL (0-125) H Total Protein 8.3 G/DL (6.4-8.2) H Albumin 2.8 G/DL (3.4-5.0) L Globulin 5.5 g/dL Albumin/Globulin Ratio 0.5 (1.0-2.7) L Height (Feet): 5 Height (Inches): 4.00 Weight (Pounds): 133 Medications Current Medications Medications (Trade) Dose Ordered Sig/Joesph Route PRN Reason Start Time Stop Time Status Last Admin Dose Admin Acetaminophen/ Hydrocodone Bitart ([place] 5/325) 1 tab Q4H PRN ORAL Moderate Pain (Pain Scale 4-6) 10/22/18 15:06 10/29/18 15:05 Aspirin (ASA) 81 mg DAILY ORAL 10/23/18 09:00 11/22/18 08:59 UNV Docusate Sodium (Colace) 100 mg THREE TIMES A DAY ORAL 10/22/18 18:00 11/21/18 17:59 UNV Pantoprazole (Protonix) 40 mg EVERY 12 HOURS ORAL 10/22/18 21:00 11/21/18 20:59 UNV Sevelamer Carbonate (Renvela) 800 mg THREE TIMES A DAY ORAL 10/22/18 18:00 11/21/18 17:59 UNV Assessment/Plan Status: stable Assessment/Plan #Acute Hypoxic Respiratory Failure #Fluids Overload #ESRD on HD #Pulmonary Vascular Congestion #Hyperkalemia - K 5.5 - hd per nephro, nephro consulted by ED for HD - fluids overload, requiring 2L NCL - tele - ekg reviewed, nsr, no acute st t wave changes #HTN Emergency - bp >200/100s in ED during evaluation - sob with mild elevated troponin/bun in renal failure pt - imdur given in ED - pt poor historian, does not know all home meds - HD per nephro - metoprolol 25mg bid, hydralazine 25 mg q6hr, imdur - hold off on acei considering hyperkalemia diet: renal hd DVT Prophylaxis: SCD, HSQ Code Status: Full Hospital Classification Declaration: Based on this initial evaluation, and depending on the patient's clinical course, I anticipate that this patient will require hospitalization for 2-3 days for dialysis, sx control, htn emergency, sob and close respiratory/hemodynamic monitoring. I have reviewed all imaging, labs and medications Disposition: Once the patient is stable to leave the hospital, I anticipate the patient will likely be discharged to the following environment: home with HH vs SNF I spent 61 minutes on this patient's case, and 40 minutes were dedicated to counseling and/or care coordination. Discussed with patient/family, nursing staff, SW/CM regarding clinical status, treatment course, and disposition planning. Time of note may not reflect time of encounter. --- Date of Discussion: 10/22/18 A [id number] discussion with the patient regarding the patient's advanced care planning took place during this hospitalization on the above date. The discussion included the explanation and discussion of advance directives and associated forms/documents, as well as the patient's current code status. We also discussed at length the patient's medical conditions (both acute and chronic), general prognosis, treatment options, and goals of care. The following summarizes the discussion: Advance Care Planning/Goals of Care: - Will attempt to fill out an AD and/or POLST with the patient prior to discharge, if not already completed - Continue current evaluation and management of any acute and chronic medical issues - Will continue to support the patient/family - Will continue to discuss both short- and long-term goals of care DPOA-HC/Surrogate Decision Maker: None currently appointed Code Status: Full Code AD Forms/Documents Completed: Deferred A total of 31 minutes was spent on this discussion, including counseling, answering questions, and completing, if any, pertinent advanced care planning forms/documents. Lucie Polk MD Oct 22, 2018 15:25
[2018-10-22 16:00] VITALS: BP 146/69
[2018-10-22] MEDS ORDERED: Imdur 30mg tab ORAL SCH (16:30)
[2018-10-22] MEDS: Docusate 100mg cap ORAL SCH (17:17)
[2018-10-22] MEDS: HydrALAZINE 50mg tab ORAL SCH ×2 (17:17→23:40)
[2018-10-22] MEDS: Norco 5mg/325mg tab ORAL PRN (17:18)
--- NOTE | 2018-10-22 19:12 | NUR ---
HAND-OFF: Report given to GLADIS Boogie.
--- NOTE | 2018-10-22 19:20 | NUR ---
NURSE NOTES: NURSE NOTES: patient received. patient in no acute distress at this time patient complains of 10/10 pain at this time. i called Dr. loving who ordered morphine for patient . patient bed in lowest position and locked. call light within reach. will continue to monitor.
[2018-10-22 20:00] VITALS: BP 141/80
[2018-10-22] MEDS: Metoprolol 25mg tab ORAL SCH (20:14)
[2018-10-22] MEDS: Heparin 5000 units/ml inj SUBQ SCH (20:15)
[2018-10-22] MEDS ORDERED: Heparin 5000 units/ml inj SUBQ SCH (21:00)
--- NOTE | 2018-10-22 21:02 | Consultation ---
History of Present Illness General Date patient seen: Oct 22, 2018 Chief Complaint: Dyspnea/Respdistress Present Illness Allergies: Coded Allergies: No Known Allergies (Verified Allergy, Unknown, 04/07/08) Medication History Scheduled Difluprednate (Durezol), 1 DROP OP QID Scheduled PRN Acetaminophen With Codeine (T#3) (Tylenol #3 Tab*), 1 TAB ORAL Q8H PRN for For Pain Patient History Healthcare decision maker Resuscitation status Full Code Advanced Directive on File Physical Exam Last 24 Hour Vital Signs Date Time Temp Pulse Resp B/P (MAP) Pulse Ox O2 Delivery O2 Flow Rate FiO2 10/22/18 20:14 101 146/69 10/22/18 17:24 101 146/69 10/22/18 17:24 146/69 10/22/18 17:17 146/69 10/22/18 16:00 96 10/22/18 16:00 98.9 101 20 146/69 (94) 95 10/22/18 15:09 Nasal Cannula 2.0 10/22/18 14:32 98.1 102 20 182/73 99 Nasal Cannula 2.0 10/22/18 13:50 99 16 99 Nasal Cannula 2.0 28 10/22/18 13:21 28 10/22/18 13:21 102 18 97 Nasal Cannula 2.0 28 10/22/18 13:21 102 18 Nasal Cannula 2.0 95 10/22/18 13:06 101 30 Nasal Cannula 2.0 95 10/22/18 13:06 99.8 101 30 195/92 95 Nasal Cannula 2.0 10/22/18 13:04 195/92 10/22/18 12:41 99.9 100 23 184/120 89 Room Air Laboratory Tests Test 10/22/18 12:50 White Blood Count 5.8 K/UL (4.8-10.8) Red Blood Count 3.32 M/UL (4.20-5.40) L Hemoglobin 10.2 G/DL (12.0-16.0) L Hematocrit 35.0 % (37.0-47.0) L Mean Corpuscular Volume 105 FL (80-99) H Mean Corpuscular Hemoglobin 30.7 PG (27.0-31.0) Mean Corpuscular Hemoglobin Concent 29.1 G/DL (32.0-36.0) L Red Cell Distribution Width 19.5 % (11.6-14.8) H Platelet Count 119 K/UL (150-450) L Mean Platelet Volume 7.3 FL (6.5-10.1) Neutrophils (%) (Auto) 59.1 % (45.0-75.0) Lymphocytes (%) (Auto) 26.0 % (20.0-45.0) Monocytes (%) (Auto) 13.2 % (1.0-10.0) H Eosinophils (%) (Auto) 0.4 % (0.0-3.0) Basophils (%) (Auto) 1.4 % (0.0-2.0) Sodium Level 139 MMOL/L (136-145) Potassium Level 5.5 MMOL/L (3.5-5.1) H Chloride Level 104 MMOL/L (98-107) Carbon Dioxide Level 25 MMOL/L (21-32) Anion Gap 10 mmol/L (5-15) Blood Urea Nitrogen 34 mg/dL (7-18) H Creatinine 6.9 MG/DL (0.55-1.30) H Estimat Glomerular Filtration Rate mL/min (>60) Glucose Level 76 MG/DL (74-106) Calcium Level 8.1 MG/DL (8.5-10.1) L Total Bilirubin 0.4 MG/DL (0.2-1.0) Aspartate Amino Transf (AST/SGOT) 49 U/L (15-37) H Alanine Aminotransferase (ALT/SGPT) 14 U/L (12-78) Alkaline Phosphatase 129 U/L (46-116) H Total Creatine Kinase 72 U/L (26-308) Creatine Kinase MB 1.4 NG/ML (0.0-3.6) Creatine Kinase MB Relative Index 1.9 Troponin I 0.062 ng/mL (0.000-0.056) C-Reactive Protein, Quantitative 1.5 mg/dL (0.00-0.90) H Pro-B-Type Natriuretic Peptide > 47970 pg/mL (0-125) H Total Protein 8.3 G/DL (6.4-8.2) H Albumin 2.8 G/DL (3.4-5.0) L Globulin 5.5 g/dL Albumin/Globulin Ratio 0.5 (1.0-2.7) L Height (Feet): 5 Height (Inches): 4.00 Weight (Pounds): 133 Medications Current Medications Medications (Trade) Dose Ordered Sig/Joesph Route PRN Reason Start Time Stop Time Status Last Admin Dose Admin Acetaminophen/ Hydrocodone Bitart ([place] 5/325) 1 tab Q4H PRN ORAL Moderate Pain (Pain Scale 4-6) 10/22/18 15:06 10/29/18 15:05 10/22/18 17:18 Aspirin (ASA) 81 mg DAILY ORAL 10/23/18 09:00 11/22/18 08:59 Clonidine HCl (Catapres Tab) 0.1 mg Q4H PRN ORAL bp over 160 syst 10/22/18 16:03 11/21/18 16:02 Docusate Sodium (Colace) 100 mg THREE TIMES A DAY ORAL 10/22/18 18:00 11/21/18 17:59 10/22/18 17:17 Heparin Sodium (Porcine) (Heparin 5000 units/ml) 5,000 units EVERY 12 HOURS SUBQ 10/22/18 21:00 11/21/18 20:59 10/22/18 20:15 Hydralazine HCl (Apresoline) 50 mg Q6HR ORAL 10/22/18 18:00 11/21/18 17:59 10/22/18 17:17 Isosorbide Mononitrate (Imdur) 30 mg DAILY ORAL 10/23/18 09:00 11/22/18 08:59 Metoprolol Tartrate (Lopressor) 25 mg Q12HR ORAL 10/22/18 21:00 11/21/18 20:59 10/22/18 20:14 Morphine Sulfate (Morphine Sulfate) 2 mg Q4H PRN IVP For Pain 10/22/18 21:00 10/29/18 20:59 UNV Ondansetron HCl (Zofran) 4 mg Q6H PRN IVP Nausea & Vomiting 10/22/18 16:04 11/21/18 16:03 Pantoprazole (Protonix) 40 mg EVERY 12 HOURS ORAL 10/22/18 21:00 11/21/18 20:59 10/22/18 20:14 Sevelamer Carbonate (Renvela) 800 mg THREE TIMES A DAY ORAL 10/22/18 18:00 11/21/18 17:59 10/22/18 17:17 Assessment/Plan Assessment/Plan Hematology Consultatio REQ : Kat[facility]: Anemia of chronic disease DOS: 10/22/17 Present Illness HPI 78 yo female with h/o esrd on hd presents with SOB. States patient her last HD was on Sunday. Patient is poor historian. Patient has been having progressive sob over the past 2 days. Admits to coughs with white sputum productiong. Denies fevers/chills/nausea/vomiting/abd pain/cp. CXR reviewed showing pulm vasc congestion. Nephrology consulted for HD by ED Social hx reviewed, denies smoking, alcohol or drug use Code status reviewed: full code Past fam hx reviewed, denies any sig past fam hx Allergies: No Known Allergies (Verified Allergy, Unknown, 04/07/08) Difluprednate (Durezol), 1 DROP OP QID Scheduled PRN History Provided By: Patient, Medical Record Healthcare decision maker Resuscitation status Full Code Advanced Directive on File Review of Systems ROS Narrative 14 point ROS reviewed and negative except per the above HPI Physical Exam General Appearance: WD/WN, alert, mild distress Lines, tubes and drains: peripheral HEENT: normocephalic, atraumatic, mucous membranes moist, PERRL Neck: non-tender, normal alignment, supple, normal inspection Respiratory/Chest: - mild crackles appreciated b/l lung kwong Cardiovascular/Chest: normal peripheral pulses, normal rate, regular rhythm Abdomen: normal bowel sounds, non tender, soft Extremities: normal range of motion, non-tender, normal inspection Skin Exam: normal pigmentation, warm/dry 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, no motor/sensory deficits Last 24 Hour Vital Signs Date Time Temp Pulse Resp B/P (MAP) Pulse Ox O2 Delivery O2 Flow Rate FiO2 10/22/18 14:32 98.1 102 20 182/73 99 Nasal Cannula 2.0 10/22/18 13:50 99 16 99 Nasal Cannula 2.0 28 10/22/18 13:21 28 10/22/18 13:21 102 18 97 Nasal Cannula 2.0 28 10/22/18 13:21 102 18 Nasal Cannula 2.0 95 10/22/18 13:06 101 30 Nasal Cannula 2.0 95 10/22/18 13:06 99.8 101 30 / 95 Nasal Cannula 2.0 10/22/18 13:04 195/92 10/22/18 12:41 99.9 100 23 184/120 89 Room Air Laboratory Tests Test 10/22/18 12:50 White Blood Count 5.8 K/UL (4.8-10.8) Red Blood Count 3.32 M/UL (4.20-5.40) L Hemoglobin 10.2 G/DL (12.0-16.0) L Hematocrit 35.0 % (37.0-47.0) L Mean Corpuscular Volume 105 FL (80-99) H Mean Corpuscular Hemoglobin 30.7 PG (27.0-31.0) Mean Corpuscular Hemoglobin Concent 29.1 G/DL (32.0-36.0) L Red Cell Distribution Width 19.5 % (11.6-14.8) H Platelet Count 119 K/UL (150-450) L Mean Platelet Volume 7.3 FL (6.5-10.1) Neutrophils (%) (Auto) 59.1 % (45.0-75.0) Lymphocytes (%) (Auto) 26.0 % (20.0-45.0) Monocytes (%) (Auto) 13.2 % (1.0-10.0) H Eosinophils (%) (Auto) 0.4 % (0.0-3.0) Basophils (%) (Auto) 1.4 % (0.0-2.0) Sodium Level 139 MMOL/L (136-145) Potassium Level 5.5 MMOL/L (3.5-5.1) H Chloride Level 104 MMOL/L (98-107) Carbon Dioxide Level 25 MMOL/L (21-32) Anion Gap 10 mmol/L (5-15) Blood Urea Nitrogen 34 mg/dL (7-18) H Creatinine 6.9 MG/DL (0.55-1.30) H Estimat Glomerular Filtration Rate mL/min (>60) Glucose Level 76 MG/DL (74-106) Calcium Level 8.1 MG/DL (8.5-10.1) L Total Bilirubin 0.4 MG/DL (0.2-1.0) Aspartate Amino Transf (AST/SGOT) 49 U/L (15-37) H Alanine Aminotransferase (ALT/SGPT) 14 U/L (12-78) Alkaline Phosphatase 129 U/L (46-116) H Total Creatine Kinase 72 U/L (26-308) Creatine Kinase MB 1.4 NG/ML (0.0-3.6) Creatine Kinase MB Relative Index 1.9 Troponin I 0.062 ng/mL (0.000-0.056) Pro-B-Type Natriuretic Peptide > 32218 pg/mL (0-125) H Total Protein 8.3 G/DL (6.4-8.2) H Albumin 2.8 G/DL (3.4-5.0) L Globulin 5.5 g/dL Albumin/Globulin Ratio 0.5 (1.0-2.7) L Height (Feet): 5 Height (Inches): 4.00 Weight (Pounds): 133 Medications Current Medications Medications (Trade) Dose Ordered Sig/Joesph Route PRN Reason Start Time Stop Time Status Last Admin Dose Admin Acetaminophen/ Hydrocodone Bitart ([place] 5/325) 1 tab Q4H PRN ORAL Moderate Pain (Pain Scale 4-6) 10/22/18 15:06 10/29/18 15:05 Aspirin (ASA) 81 mg DAILY ORAL 10/23/18 09:00 11/22/18 08:59 UNV Docusate Sodium (Colace) 100 mg THREE TIMES A DAY ORAL 10/22/18 18:00 11/21/18 17:59 UNV Pantoprazole (Protonix) 40 mg EVERY 12 HOURS ORAL 10/22/18 21:00 11/21/18 20:59 UNV Sevelamer Carbonate (Renvela) 800 mg THREE TIMES A DAY ORAL 10/22/18 18:00 11/21/18 17:59 UNV Assessment/Plan # Anemia of chronic disease -- hgb appeox 8-10 baseline, likely related to ckd --> anemia panel has been reviewed --> results are pending --> hgb goal >7 # Thrombocytopenia appeox 100-150k, decreased from baseline --> smear pending --> hep and hiv ordered # Acute Hypoxic Respiratory Failure --> as per pulm # Fluids Overload # ESRD on HD # Pulmonary Vascular Congestion # Hyperkalemia --> K 5.5, hd per nephro, nephro consulted by ED for HD --> appreciate sheree recs # HTN Emergency --> bp >200/100s in ED during evaluation --> sob with mild elevated troponin/bun in renal failure pt --> imdur given in ED --> holding off on acei/arb Appreciate consultation greatly! Bennie Scott MD Oct 22, 2018 21:02
[2018-10-22] MEDS: Morphine Sulfate 4mg/ml Inj (IV/IM USE ONLY) IVP PRN (21:07)
[2018-10-23] VITALS: BP 147/78
[2018-10-23] MEDS: HydrALAZINE 50mg tab ORAL SCH ×3 (06:30→18:09)
[2018-10-23 06:56] LABS: BASOPHILS % (AUTO) 0.8 % (0.0-2.0); EOSINOPHILS % (AUTO) 0.1 % (0.0-3.0); HEMATOCRIT 31.1 % (37.0-47.0); HEMOGLOBIN 9.2 G/DL (12.0-16.0); LYMPHOCYTES % (AUTO) 25.2 % (20.0-45.0); MEAN CORPUSCULAR VOLUME 105 FL (80-99); MONOCYTES % (AUTO) 11.8 % (1.0-10.0); NEUTROPHILS % (AUTO) 62.1 % (45.0-75.0); PLATELET COUNT 118 K/UL (150-450); RED BLOOD COUNT 2.98 M/UL (4.20-5.40); RED CELL DISTRIBUTION WIDTH 18.5 % (11.6-14.8); WHITE BLOOD COUNT 5.6 K/UL (4.8-10.8)
--- NOTE | 2018-10-23 07:27 | General Progress Note ---
Assessment/Plan Status: stable Assessment/Plan #Acute Hypoxic Respiratory Failure #Fluids Overload #ESRD on HD #Pulmonary Vascular Congestion #Hyperkalemia - K 5.5 - hd per nephro, nephro consulted by ED for HD - fluids overload, requiring 2L NCL - tele - ekg reviewed, nsr, no acute st t wave changes #HTN Emergency - bp >200/100s in ED during evaluation - sob with mild elevated troponin/bun in renal failure pt - imdur given in ED - pt poor historian, does not know all home meds - HD per nephro - metoprolol 25mg bid, hydralazine 25 mg q6hr, imdur started - hold off on acei considering hyperkalemia - bp improving.. appreciate nephrology recs, can adjust bp meds accordingly diet: renal hd DVT Prophylaxis: SCD, HSQ Code Status: Full Hospital Classification Declaration: Based on this initial evaluation, and depending on the patient's clinical course, I anticipate that this patient will require hospitalization for 2-3 days for dialysis, sx control, htn emergency, sob and close respiratory/hemodynamic monitoring. I have reviewed all imaging, labs and medications Disposition: Once the patient is stable to leave the hospital, I anticipate the patient will likely be discharged to the following environment: home with HH vs SNF I spent 55 minutes on this patient's case, and 40 minutes were dedicated to counseling and/or care coordination. Discussed with patient/family, nursing staff, SW/CM regarding clinical status, treatment course, and disposition planning. Time of note may not reflect time of encounter. --- Date of Discussion: 10/22/18 A xfki-mi-adkg discussion with the patient regarding the patient's advanced care planning took place during this hospitalization on the above date. The discussion included the explanation and discussion of advance directives and associated forms/documents, as well as the patient's current code status. We also discussed at length the patient's medical conditions (both acute and chronic), general prognosis, treatment options, and goals of care. The following summarizes the discussion: Advance Care Planning/Goals of Care: - Will attempt to fill out an AD and/or POLST with the patient prior to discharge, if not already completed - Continue current evaluation and management of any acute and chronic medical issues - Will continue to support the patient/family - Will continue to discuss both short- and long-term goals of care DPOA-HC/Surrogate Decision Maker: None currently appointed Code Status: Full Code AD Forms/Documents Completed: Deferred A total of 31 minutes was spent on this discussion, including counseling, answering questions, and completing, if any, pertinent advanced care planning forms/documents. Subjective Date patient seen: Oct 23, 2018 Time patient seen: 07:24 Allergies: Coded Allergies: No Known Allergies (Verified Allergy, Unknown, 04/07/08) Subjective f/u esrd on hd fluid overload, hypoxic resp failure, HTN emergency on ncl 2L pending HD still denies any cp no acute events overnight stable denies any ALEXIS/abd pain/nausea/vomiting/diarrhea/constipation bp improving ROS: 14 point ROS reviewed and negative except per the above Objective Last 24 Hour Vital Signs Date Time Temp Pulse Resp B/P (MAP) Pulse Ox O2 Delivery O2 Flow Rate FiO2 10/23/18 06:30 147/78 10/23/18 04:00 98.1 10/23/18 04:00 124 10/23/18 00:00 97.9 22 147/78 (101) 96 10/22/18 23:40 146/69 10/22/18 21:00 Nasal Cannula 2.0 10/22/18 20:14 101 146/69 10/22/18 20:00 96.6 12 141/80 (100) 97 10/22/18 20:00 77 10/22/18 17:24 101 146/69 10/22/18 17:24 146/69 10/22/18 17:17 146/69 10/22/18 16:00 96 10/22/18 16:00 98.9 101 20 146/69 (94) 95 10/22/18 15:09 Nasal Cannula 2.0 10/22/18 14:32 98.1 102 20 182/73 99 Nasal Cannula 2.0 10/22/18 13:50 99 16 99 Nasal Cannula 2.0 28 10/22/18 13:21 28 10/22/18 13:21 102 18 97 Nasal Cannula 2.0 28 10/22/18 13:21 102 18 Nasal Cannula 2.0 95 10/22/18 13:06 101 30 Nasal Cannula 2.0 95 10/22/18 13:06 99.8 101 30 195/92 95 Nasal Cannula 2.0 1/1/19 13:04 195/92 10/22/18 12:41 99.9 100 23 184/120 89 Room Air Intake and Output 10/22/18 10/23/18 19:00 07:00 Intake Total 120 ml 200 ml Balance 120 ml 200 ml Intake Oral 120 ml 200 ml # Voids 2 1 Laboratory Tests 10/22/18 12:50: White Blood Count 5.8, Red Blood Count 3.32L, Hemoglobin 10.2L, Hematocrit 35.0L , Mean Corpuscular Volume 105H, Mean Corpuscular Hemoglobin 30.7, Mean Corpuscular Hemoglobin Concent 29.1L, Red Cell Distribution Width 19.5H, Platelet Count 119L, Mean Platelet Volume 7.3, Neutrophils (%) (Auto) 59.1, Lymphocytes (%) (Auto) 26.0, Monocytes (%) (Auto) 13.2H, Eosinophils (%) (Auto) 0.4, Basophils (%) (Auto) 1.4, Differential Total Cells Counted 100, Neutrophils % (Manual) 61, Lymphocytes % (Manual) 26, Monocytes % (Manual) 12H, Eosinophils % (Manual) 0, Basophils % (Manual) 0, Myelocytes % 1H, Band Neutrophils 0, Platelet Estimate DecreasedL, Platelet Morphology Normal, Polychromasia 3+, Hypochromasia 2+, Anisocytosis 2+, Macrocytosis 1+, Sodium Level 139, Potassium Level 5.5H, Chloride Level 104, Carbon Dioxide Level 25, Anion Gap 10, Blood Urea Nitrogen 34H, Creatinine 6.9H, Estimat Glomerular Filtration Rate , Glucose Level 76, Calcium Level 8.1L, Total Bilirubin 0.4, Aspartate Amino Transf (AST/SGOT) 49H, Alanine Aminotransferase (ALT/SGPT) 14, Alkaline Phosphatase 129H, Total Creatine Kinase 72, Creatine Kinase MB 1.4, Creatine Kinase MB Relative Index 1.9, Troponin I 0.062H, C-Reactive Protein, Quantitative 1.5H, Pro-B-Type Natriuretic Peptide > 23043W, Total Protein 8.3H, Albumin 2.8L, Globulin 5.5, Albumin/Globulin Ratio 0.5L 10/22/18 21:30: Albumin/Globulin Ratio [Pending], Reticulocyte Count 6.6H, Fibrinogen 326, Total Protein (PEP) [Pending], Albumin (PEP) [Pending], Globulin (PEP) [Pending] , Xsden-3-Ynbaqkheh [Pending], Uufqb-8-Sxxtywkpi [Pending], Beta Globulins [ Pending], Beta Gamma Globulin [Pending], PEP Abnormal Protein Bands [Pending], Protein Electrophoresis Interpret [Pending], Folate 17.2, Hepatitis A IgM Antibody [Pending], Hepatitis B Surface Antigen [Pending], Hepatitis B Core IgM Antibody [Pending], Hepatitis C Antibody [Pending], HIV (1&2) Antibody Rapid Negative 10/23/18 06:08: White Blood Count 5.6, Red Blood Count 2.98L, Hemoglobin 9.2L, Hematocrit 31.1L , Mean Corpuscular Volume 105H, Mean Corpuscular Hemoglobin 30.9, Mean Corpuscular Hemoglobin Concent 29.5L, Red Cell Distribution Width 18.5H, Platelet Count 118L, Mean Platelet Volume 6.7, Neutrophils (%) (Auto) 62.1, Lymphocytes (%) (Auto) 25.2, Monocytes (%) (Auto) 11.8H, Eosinophils (%) (Auto) 0.1, Basophils (%) (Auto) 0.8, Sodium Level [Pending], Potassium Level [Pending] , Chloride Level [Pending], Carbon Dioxide Level [Pending], Blood Urea Nitrogen [Pending], Creatinine [Pending], Estimat Glomerular Filtration Rate [Pending], Glucose Level [Pending], Calcium Level [Pending], Total Bilirubin [Pending], Aspartate Amino Transf (AST/SGOT) [Pending], Alanine Aminotransferase (ALT/SGPT ) [Pending], Alkaline Phosphatase [Pending], Troponin I 0.269H, Pro-B-Type Natriuretic Peptide [Pending], Total Protein [Pending], Albumin [Pending], Globulin [Pending], Uric Acid [Pending], Phosphorus Level [Pending], Magnesium Level [Pending], Iron Level [Pending], Unsaturated Iron Binding [Pending], Ferritin [Pending], Gamma Glutamyl Transpeptidase [Pending], Triglycerides Level [Pending], Cholesterol Level [Pending], LDL Cholesterol [Pending], HDL Cholesterol [Pending], Cholesterol/HDL Ratio [Pending], Vitamin B12 Level [ Pending], Thyroid Stimulating Hormone (TSH) [Pending] Height (Feet): 5 Height (Inches): 4.00 Weight (Pounds): 133 Objective General Appearance: WD/WN, alert, mild distress Lines, tubes and drains: peripheral HEENT: normocephalic, atraumatic, mucous membranes moist, PERRL Neck: non-tender, normal alignment, supple, normal inspection Respiratory/Chest: chest wall non-tender, lungs clear, other - mild crackles appreciated b/l lung kwong Cardiovascular/Chest: normal peripheral pulses, normal rate, regular rhythm Abdomen: normal bowel sounds, non tender, soft, no organomegaly, no mass Extremities: normal range of motion, non-tender, normal inspection Skin Exam: normal pigmentation, warm/dry 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
[2018-10-23 07:38] LABS: % IRON SATURATION 9 % (15-50); IRON 20 ug/dL (50-175); TOTAL IRON BINDING CAPACITY 224 ug/dL (250-450)
--- NOTE | 2018-10-23 07:38 | NUR ---
HAND-OFF: Report given to GLADIS moran.
--- NOTE | 2018-10-23 07:39 | NUR ---
NURSE NOTES: Received patient from GLADIS Boogie. Patient is awake, sitting on the edge of the bed and eating her breakfast. She is verbally responsive. training administrator in placed. IV site is asymptomatic. Bed in lowest position with side rails up. Will continue to follow plan of care.
[2018-10-23 07:45] LABS: ALANINE AMINOTRANSFERASE 18 U/L (12-78); ALBUMIN 2.7 G/DL (3.4-5.0); ALBUMIN/GLOBULIN RATIO 0.5 (1.0-2.7); ALKALINE PHOSPHATASE 103 U/L (46-116); ANION GAP 11 mmol/L (5-15); ASPARTATE AMINO TRANSFERASE 26 U/L (15-37); BILIRUBIN,TOTAL 0.4 MG/DL (0.2-1.0); BLOOD UREA NITROGEN 45 mg/dL (7-18); CALCIUM 8.3 MG/DL (8.5-10.1); CARBON DIOXIDE 23 MMOL/L (21-32); CHLORIDE 104 MMOL/L (98-107); CHOLESTEROL 129 MG/DL (< 200); CREATININE 8.7 MG/DL (0.55-1.30); FERRITIN 184 NG/ML (8-388); GAMMA GLUTAMYL TRANSPEPTIDASE 35 U/L (5-85); HDL CHOLESTEROL 60 MG/DL (40-60); POTASSIUM 5.5 MMOL/L (3.5-5.1); SODIUM 138 MMOL/L (136-145); TRIGLYCERIDES 55 MG/DL (30-150)
--- NOTE | 2018-10-23 07:45 | NUR ---
NURSE NOTES: Dr. Polk is in the unite and informed him for Troponin of 0.269.
[2018-10-23 08:00] VITALS: BP 149/75
[2018-10-23] MEDS: Docusate 100mg cap ORAL SCH ×3 (08:26→18:09)
[2018-10-23] MEDS: Metoprolol 25mg tab ORAL SCH ×2 (08:27→22:28)
[2018-10-23] MEDS: Aspirin Baby 81mg ORAL SCH (08:27)
[2018-10-23] MEDS: Morphine Sulfate 4mg/ml Inj (IV/IM USE ONLY) IVP PRN ×2 (08:28→22:28)
[2018-10-23] MEDS: Heparin 5000 units/ml inj SUBQ SCH ×2 (08:29→21:00)
--- NOTE | 2018-10-23 08:48 | NUR ---
NURSE NOTES: Spoke to Tripp from [facility] Nephrology to confirm about dialysis today. She will inform the HD nurse.
[2018-10-23] MEDS ORDERED: Imdur 30mg tab ORAL SCH (09:00)
--- NOTE | 2018-10-23 09:10 | Diagnostic Imaging Report ---
Indication: Dyspnea Comparison: None A single view chest radiograph was obtained. Findings: Interstitial edema demonstrated with cardiomegaly. No pleural effusion seen. Bones are osteopenic. IMPRESSION: CHF
--- NOTE | 2018-10-23 09:30 | NUR ---
NURSE NOTES: HD Nurse Omid is in the unit and states that he will do her dialysis today.
--- NOTE | 2018-10-23 10:05 | NUR ---
NURSE NOTES: Patient refused 2D Echo and Dr. Scott aware.
--- NOTE | 2018-10-23 10:05 | NUR ---
CARDIOLOGY Pt refused 2D Echo.
[2018-10-23 12:00] VITALS: BP 124/67
--- NOTE | 2018-10-23 13:06 | Nephrology Progress Note ---
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 Phos binder 2D echo pending optimize cardiac status Subjective ROS Limited/Unobtainable: No Constitutional: Reports: malaise Objective Objective Last 24 Hour Vital Signs Date Time Temp Pulse Resp B/P (MAP) Pulse Ox O2 Delivery O2 Flow Rate FiO2 10/23/18 12:27 124/67 10/23/18 12:00 97.8 68 21 124/67 (86) 99 10/23/18 09:00 Nasal Cannula 2.0 10/23/18 08:27 82 149/75 10/23/18 08:27 149/75 10/23/18 08:00 97.9 82 19 149/75 (99) 95 10/23/18 07:16 78 10/23/18 06:30 147/78 10/23/18 04:00 98.1 10/23/18 04:00 124 10/23/18 00:00 97.9 22 147/78 (101) 96 10/22/18 23:40 146/69 10/22/18 21:00 Nasal Cannula 2.0 10/22/18 20:14 101 146/69 10/22/18 20:00 96.6 12 141/80 (100) 97 10/22/18 20:00 77 10/22/18 17:24 101 146/69 10/22/18 17:24 146/69 10/22/18 17:17 146/69 10/22/18 16:00 96 10/22/18 16:00 98.9 101 20 146/69 (94) 95 10/22/18 15:09 Nasal Cannula 2.0 10/22/18 14:32 98.1 102 20 182/73 99 Nasal Cannula 2.0 10/22/18 13:50 99 16 99 Nasal Cannula 2.0 28 10/22/18 13:21 28 10/22/18 13:21 102 18 97 Nasal Cannula 2.0 28 10/22/18 13:21 102 18 Nasal Cannula 2.0 95 10/22/18 13:06 101 30 Nasal Cannula 2.0 95 10/22/18 13:06 99.8 101 30 195/92 95 Nasal Cannula 2.0 Intake and Output 10/22/18 10/23/18 19:00 07:00 Intake Total 120 ml 200 ml Balance 120 ml 200 ml Intake Oral 120 ml 200 ml # Voids 2 1 Laboratory Tests 10/22/18 21:30: Reticulocyte Count 6.6H, Fibrinogen 326, Total Protein (PEP) [Pending], Albumin (PEP) [Pending], Globulin (PEP) [Pending], Albumin/Globulin Ratio [Pending], Vlvrx-6-Gqfgrpcfh [Pending], Fqvcs-8-Lusjddnla [Pending], Beta Globulins [ Pending], Beta Gamma Globulin [Pending], PEP Abnormal Protein Bands [Pending], Protein Electrophoresis Interpret [Pending], Folate 17.2, Hepatitis A IgM Antibody [Pending], Hepatitis B Surface Antigen [Pending], Hepatitis B Core IgM Antibody [Pending], Hepatitis C Antibody [Pending], HIV (1&2) Antibody Rapid Negative 10/23/18 06:08: Albumin/Globulin Ratio 0.5L, White Blood Count 5.6, Red Blood Count 2.98L, Hemoglobin 9.2L, Hematocrit 31.1L, Mean Corpuscular Volume 105H, Mean Corpuscular Hemoglobin 30.9, Mean Corpuscular Hemoglobin Concent 29.5L, Red Cell Distribution Width 18.5H, Platelet Count 118L, Mean Platelet Volume 6.7, Neutrophils (%) (Auto) 62.1, Lymphocytes (%) (Auto) 25.2, Monocytes (%) (Auto) 11.8H, Eosinophils (%) (Auto) 0.1, Basophils (%) (Auto) 0.8, Sodium Level 138, Potassium Level 5.5H, Chloride Level 104, Carbon Dioxide Level 23, Anion Gap 11 , Blood Urea Nitrogen 45H, Creatinine 8.7H, Estimat Glomerular Filtration Rate , Glucose Level 94, Uric Acid 6.2, Calcium Level 8.3L, Phosphorus Level 4.0, Magnesium Level 2.6H, Iron Level 20L, Total Iron Binding Capacity 224L, Percent Iron Saturation 9L, Unsaturated Iron Binding 204, Ferritin 184, Total Bilirubin 0.4, Gamma Glutamyl Transpeptidase 35, Aspartate Amino Transf (AST/SGOT) 26, Alanine Aminotransferase (ALT/SGPT) 18, Alkaline Phosphatase 103, Troponin I 0.269H, Pro-B-Type Natriuretic Peptide > 96337F, Total Protein 7.7, Albumin 2.7L , Globulin 5.0, Triglycerides Level 55, Cholesterol Level 129, LDL Cholesterol 69, HDL Cholesterol 60, Cholesterol/HDL Ratio 2.2L, Vitamin B12 Level 574, Thyroid Stimulating Hormone (TSH) 0.792 Height (Feet): 5 Height (Inches): 4.00 Weight (Pounds): 133 General Appearance: no apparent distress Cardiovascular: normal rate Respiratory/Chest: decreased breath sounds Abdomen: soft Jostin Zelaya MD Oct 23, 2018 13:06
[2018-10-23 16:00] VITALS: BP 124/64
--- NOTE | 2018-10-23 16:04 | NUR ---
NURSE NOTES: Had an episode of spitting out blood X1. Informed Dr. Polk and said to monitor for now.
--- NOTE | 2018-10-23 16:05 | NUR ---
NURSE NOTES: Dr. Polk aware of Potassium 5.5. Still awaiting for HD Nurse from [facility] in the unit. He said that he was going to another patient first to do their dialysis and then go to Ms. Italia Oropeza. He also already spoke with the patient about doing her dialysis today.
--- NOTE | 2018-10-23 19:05 | NUR ---
HAND-OFF: Report given to GLADIS Boogie. Aware that patient still needs dialysis today. HD nurse (Bennie) stated that patient will be getting dialysis later on today, but did not specify a time. AM charge nurse aware.
--- NOTE | 2018-10-23 19:10 | NUR ---
NURSE NOTES: Received report from Stephanie Gomes. Pt is resting in the bed in 2L NC w/o distress. Endorsed that [facility] will visit pt tonight for HD. Endorsed that pt spit blood during the day shift d/t oxygen supply, and Dr. Cummings is aware. Safety measures are applied with bed alarm on, bed in lowest position, side rails up x2, and breaks are engaged. Call light and side table are w/in reach. Will follow plans of care.
[2018-10-23 20:00] VITALS: BP 131/65
--- NOTE | 2018-10-23 20:37 | NUR ---
NURSE NOTES: Pt is receiving HD. Will hold evening med for now. Will reassess pt and give med when needed.
--- NOTE | 2018-10-23 22:10 | General Progress Note ---
Assessment/Plan Assessment/Plan Assessment/Plan # Anemia of chronic disease -- hgb appeox 8-10 baseline, likely related to ckd --> anemia panel has been reviewed --> results are pending --> hgb goal >7 # Thrombocytopenia appeox 100-150k, decreased from baseline --> smear pending --> hep and hiv ordered # Acute Hypoxic Respiratory Failure --> as per pulm # Fluids Overload # ESRD on HD # Pulmonary Vascular Congestion # Hyperkalemia --> K 5.5, hd per nephro, nephro consulted by ED for HD --> appreciate neprho recs # HTN Emergency --> bp >200/100s in ED during evaluation --> sob with mild elevated troponin/bun in renal failure pt --> imdur given in ED --> holding off on acei/arb Appreciate consultation greatly! Subjective HEENT: Denies: no symptoms, eye pain, blurred vision, tearing, double vision, ear pain, ear discharge, nose pain, nose congestion, throat pain, throat swelling, mouth pain, mouth swelling, other Cardiovascular: Denies: no symptoms, chest pain, edema, irregular heart rate, lightheadedness, palpitations, syncope, other Respiratory: Denies: no symptoms, cough, orthopnea, shortness of breath, SOB with excertion, SOB at rest, sputum, stridor, wheezing, other Genitourinary: Denies: no symptoms, burning, discharge, frequency, flank pain, hematuria, incontinence, pain, urgency, other Neurologic/Psychiatric: Denies: no symptoms, anxiety, depressed, emotional problems, headache, numbness, paresthesia, pre-existing deficit, seizure, tingling, tremors, weakness, other Endocrine: Denies: no symptoms, excessive sweating, flushing, intolerance to cold, intolerance to heat, increased hunger, increased thirst, increased urine, unexplained weight gain, unexplained weight loss, other Hematologic/Lymphatic: Denies: no symptoms, anemia, easy bleeding, easy bruising, other Allergies: Coded Allergies: No Known Allergies (Verified Allergy, Unknown, 04/07/08) Subjective 10/23/18: Pt is seen in the room, resting in bed, on dialysis, cbc reviewed, no events Objective Last 24 Hour Vital Signs Date Time Temp Pulse Resp B/P (MAP) Pulse Ox O2 Delivery O2 Flow Rate FiO2 1/2/19 18:09 124/64 10/23/18 16:00 98.0 77 21 124/64 (84) 97 10/23/18 15:35 77 10/23/18 12:27 124/67 10/23/18 12:00 97.8 68 21 124/67 (86) 99 10/23/18 11:15 67 10/23/18 09:00 Nasal Cannula 2.0 10/23/18 08:27 82 149/75 10/23/18 08:27 149/75 10/23/18 08:00 96 Nasal Cannula 2.0 28 10/23/18 08:00 Nasal Cannula 2.0 28 10/23/18 08:00 97.9 82 19 149/75 (99) 95 10/23/18 07:16 78 10/23/18 06:30 147/78 10/23/18 04:00 98.1 10/23/18 04:00 124 10/23/18 00:00 97.9 22 147/78 (101) 96 10/22/18 23:40 146/69 Intake and Output 10/22/18 10/23/18 19:00 07:00 Intake Total 120 ml 200 ml Balance 120 ml 200 ml Intake Oral 120 ml 200 ml # Voids 2 1 Laboratory Tests 10/23/18 06:08: White Blood Count 5.6, Red Blood Count 2.98L, Hemoglobin 9.2L, Hematocrit 31.1L , Mean Corpuscular Volume 105H, Mean Corpuscular Hemoglobin 30.9, Mean Corpuscular Hemoglobin Concent 29.5L, Red Cell Distribution Width 18.5H, Platelet Count 118L, Mean Platelet Volume 6.7, Neutrophils (%) (Auto) 62.1, Lymphocytes (%) (Auto) 25.2, Monocytes (%) (Auto) 11.8H, Eosinophils (%) (Auto) 0.1, Basophils (%) (Auto) 0.8, Sodium Level 138, Potassium Level 5.5H, Chloride Level 104, Carbon Dioxide Level 23, Anion Gap 11, Blood Urea Nitrogen 45H, Creatinine 8.7H, Estimat Glomerular Filtration Rate , Glucose Level 94, Uric Acid 6.2, Calcium Level 8.3L, Phosphorus Level 4.0, Magnesium Level 2.6H, Iron Level 20L, Total Iron Binding Capacity 224L, Percent Iron Saturation 9L, Unsaturated Iron Binding 204, Ferritin 184, Total Bilirubin 0.4, Gamma Glutamyl Transpeptidase 35, Aspartate Amino Transf (AST/SGOT) 26, Alanine Aminotransferase (ALT/SGPT) 18, Alkaline Phosphatase 103, Troponin I 0.269H, Pro -B-Type Natriuretic Peptide > 81210H, Total Protein 7.7, Albumin 2.7L, Globulin 5.0, Albumin/Globulin Ratio 0.5L, Triglycerides Level 55, Cholesterol Level 129 , LDL Cholesterol 69, HDL Cholesterol 60, Cholesterol/HDL Ratio 2.2L, Vitamin B12 Level 574, Thyroid Stimulating Hormone (TSH) 0.792 Height (Feet): 5 Height (Inches): 4.00 Weight (Pounds): 133 Objective PE: General Appearance: WD/WN, alert, mild distress Lines, tubes and drains: peripheral HEENT: normocephalic, atraumatic, mucous membranes moist, PERRL Neck: non-tender, normal alignment, supple, normal inspection Respiratory/Chest: chest wall non-tender, lungs clear, other - mild crackles appreciated b/l lung kwong Cardiovascular/Chest: normal peripheral pulses, normal rate, regular rhythm Abdomen: normal bowel sounds, non tender, soft, no organomegaly, no mass Extremities: normal range of motion, non-tender, normal inspection Skin Exam: normal pigmentation, warm/dry Neurologic: glass enamel mixer II-XII grossly normal, no motor/sensory deficits, alert, oriented x 3, responsive, normal mood/affect Bennie Scott MD Oct 23, 2018 22:10
[2018-10-23 22:21] VITALS: BP_SYST 131; BP_SYST 140; BP_DIAS 65; BP_DIAS 70
[2018-10-24] VITALS: BP 143/64
[2018-10-24 04:00] VITALS: BP 143/70
[2018-10-24 06:40] LABS: BASOPHILS % (AUTO) 0.6 % (0.0-2.0); EOSINOPHILS % (AUTO) 1.1 % (0.0-3.0); HEMATOCRIT 28.9 % (37.0-47.0); HEMOGLOBIN 8.8 G/DL (12.0-16.0); LYMPHOCYTES % (AUTO) 33.3 % (20.0-45.0); MEAN CORPUSCULAR VOLUME 102 FL (80-99); MONOCYTES % (AUTO) 14.1 % (1.0-10.0); NEUTROPHILS % (AUTO) 50.9 % (45.0-75.0); PLATELET COUNT 110 K/UL (150-450); RED BLOOD COUNT 2.82 M/UL (4.20-5.40); RED CELL DISTRIBUTION WIDTH 18.2 % (11.6-14.8)
[2018-10-24] MEDS: HydrALAZINE 50mg tab ORAL SCH ×4 (06:50→21:52)
[2018-10-24] MEDS: Norco 5mg/325mg tab ORAL PRN ×2 (06:54→18:30)
[2018-10-24 07:00] LABS: ALANINE AMINOTRANSFERASE 11 U/L (12-78); ALBUMIN 2.7 G/DL (3.4-5.0); ALBUMIN/GLOBULIN RATIO 0.5 (1.0-2.7); ALKALINE PHOSPHATASE 104 U/L (46-116); ANION GAP 9 mmol/L (5-15); ASPARTATE AMINO TRANSFERASE 23 U/L (15-37); BILIRUBIN,TOTAL 0.3 MG/DL (0.2-1.0); BLOOD UREA NITROGEN 39 mg/dL (7-18); CALCIUM 8.1 MG/DL (8.5-10.1); CARBON DIOXIDE 27 MMOL/L (21-32); CHLORIDE 101 MMOL/L (98-107); CREATININE 7.2 MG/DL (0.55-1.30); PHOSPHORUS 3.4 MG/DL (2.5-4.9); SODIUM 137 MMOL/L (136-145)
--- NOTE | 2018-10-24 07:32 | General Progress Note ---
Assessment/Plan Status: stable Assessment/Plan #Acute Hypoxic Respiratory Failure #Fluids Overload #ESRD on HD #Pulmonary Vascular Congestion #Hyperkalemia - K 5 now, improving - hd per nephro, nephro consulted by ED for HD - fluids overload, requiring 2L NCL - tele - HD yesterday - ekg reviewed, nsr, no acute st t wave changes #HTN Emergency - bp >200/100s in ED during evaluation on admit.. improving now. - sob with mild elevated troponin/bun in renal failure pt - imdur given in ED - pt poor historian, does not know all home meds - HD per nephro - metoprolol 25mg bid, hydralazine 25 mg q6hr, imdur started.. bp improving with this regiment, HD done yesterday.. TTE pending, will wait for results and monitor on new bp regiment - hold off on acei considering hyperkalemia - bp improving.. appreciate nephrology recs, can adjust bp meds accordingly diet: renal hd DVT Prophylaxis: SCD, HSQ Code Status: Full Hospital Classification Declaration: Based on this initial evaluation, and depending on the patient's clinical course, I anticipate that this patient will require hospitalization for 2-3 days for dialysis, sx control, htn emergency, sob and close respiratory/hemodynamic monitoring. I have reviewed all imaging, labs and medications Disposition: Once the patient is stable to leave the hospital, I anticipate the patient will likely be discharged to the following environment: home with HH vs SNF I spent 50 minutes on this patient's case, and 35 minutes were dedicated to counseling and/or care coordination. Discussed with patient/family, nursing staff, ANN/ISIDRO regarding clinical status, treatment course, and disposition planning. Time of note may not reflect time of encounter. --- Date of Discussion: 10/22/18 A [id number] discussion with the patient regarding the patient's advanced care planning took place during this hospitalization on the above date. The discussion included the explanation and discussion of advance directives and associated forms/documents, as well as the patient's current code status. We also discussed at length the patient's medical conditions (both acute and chronic), general prognosis, treatment options, and goals of care. The following summarizes the discussion: Advance Care Planning/Goals of Care: - Will attempt to fill out an AD and/or POLST with the patient prior to discharge, if not already completed - Continue current evaluation and management of any acute and chronic medical issues - Will continue to support the patient/family - Will continue to discuss both short- and long-term goals of care DPOA-HC/Surrogate Decision Maker: None currently appointed Code Status: Full Code AD Forms/Documents Completed: Deferred A total of 31 minutes was spent on this discussion, including counseling, answering questions, and completing, if any, pertinent advanced care planning forms/documents. Subjective Date patient seen: Oct 24, 2018 Time patient seen: 07:30 Allergies: Coded Allergies: No Known Allergies (Verified Allergy, Unknown, 04/07/08) Subjective f/u esrd on hd fluid overload, hypoxic resp failure, HTN emergency on ncl 2L HD yesterday denies cp, states sob improving no acute events overnight TTE pending denies any ALEXIS/abd pain/nausea/vomiting/diarrhea/constipation bp improving ROS: 14 point ROS reviewed and negative except per the above Objective Last 24 Hour Vital Signs Date Time Temp Pulse Resp B/P (MAP) Pulse Ox O2 Delivery O2 Flow Rate FiO2 10/24/18 06:50 143/70 10/24/18 04:00 98.8 74 20 143/70 (94) 97 10/24/18 03:38 75 10/24/18 00:00 98.3 75 18 143/64 (90) 95 10/24/18 00:00 143/64 10/23/18 23:18 71 10/23/18 22:28 79 140/70 10/23/18 22:21 98.6 79 18 140/70 (93) 98 10/23/18 21:00 Nasal Cannula 2.0 10/23/18 20:00 99.4 73 131/65 (87) 10/23/18 18:43 73 10/23/18 18:09 124/64 10/23/18 16:00 98.0 77 21 124/64 (84) 97 10/23/18 15:35 77 10/23/18 12:27 124/67 10/23/18 12:00 97.8 68 21 124/67 (86) 99 10/23/18 11:15 67 10/23/18 09:00 Nasal Cannula 2.0 10/23/18 08:27 82 149/75 1/2/19 08:27 149/75 10/23/18 08:00 96 Nasal Cannula 2.0 28 10/23/18 08:00 Nasal Cannula 2.0 28 10/23/18 08:00 97.9 82 19 149/75 (99) 95 Intake and Output 10/23/18 10/24/18 19:00 07:00 Intake Total 360 ml Balance 360 ml Intake Oral 360 ml # Bowel Movements 1 Laboratory Tests 10/24/18 06:10: White Blood Count 4.0L, Red Blood Count 2.82L, Hemoglobin 8.8L, Hematocrit 28.9L , Mean Corpuscular Volume 102H, Mean Corpuscular Hemoglobin 31.4H, Mean Corpuscular Hemoglobin Concent 30.6L, Red Cell Distribution Width 18.2H, Platelet Count 110L, Mean Platelet Volume 7.2, Neutrophils (%) (Auto) 50.9, Lymphocytes (%) (Auto) 33.3, Monocytes (%) (Auto) 14.1H, Eosinophils (%) (Auto) 1.1, Basophils (%) (Auto) 0.6, Sodium Level 137, Potassium Level 5.0, Chloride Level 101, Carbon Dioxide Level 27, Anion Gap 9, Blood Urea Nitrogen 39H, Creatinine 7.2H, Estimat Glomerular Filtration Rate , Glucose Level 97, Calcium Level 8.1L, Phosphorus Level 3.4, Total Bilirubin 0.3, Aspartate Amino Transf ( AST/SGOT) 23, Alanine Aminotransferase (ALT/SGPT) 11L, Alkaline Phosphatase 104 , Troponin I [Pending], C-Reactive Protein, Quantitative 6.6H, Pro-B-Type Natriuretic Peptide > 44920G, Total Protein 7.8, Albumin 2.7L, Globulin 5.1, Albumin/Globulin Ratio 0.5L Height (Feet): 5 Height (Inches): 4.00 Weight (Pounds): 133 Objective General Appearance: WD/WN, alert, mild distress Lines, tubes and drains: peripheral HEENT: normocephalic, atraumatic, mucous membranes moist, PERRL Neck: non-tender, normal alignment, supple, normal inspection Respiratory/Chest: chest wall non-tender, lungs clear, other - mild crackles appreciated b/l lung kwong Cardiovascular/Chest: normal peripheral pulses, normal rate, regular rhythm Abdomen: normal bowel sounds, non tender, soft, no organomegaly, no mass Extremities: normal range of motion, non-tender, normal inspection Skin Exam: normal pigmentation, warm/dry Neurologic: millwright II-XII grossly normal, no motor/sensory deficits, alert, oriented x 3, responsive, normal mood/affect Lucie Polk MD Oct 24, 2018 07:32
--- NOTE | 2018-10-24 07:47 | NUR ---
HAND-OFF: Report given to Flora Suero RN. Stable condition. Endorsed that HD out put is 2L in 10-23-2018.
[2018-10-24 08:00] VITALS: BP 125/61
--- NOTE | 2018-10-24 08:20 | NUR ---
NURSE NOTES: received pt in the bed, awake, alert, oriented, vital signs stable, no co pain, no SON, respiration regular, skin warm and dry to touch, intact, AV shunt on left upper arm, HD done yesterday, bed in low position, call light within reach.
[2018-10-24] MEDS: Heparin 5000 units/ml inj SUBQ SCH ×2 (09:00→21:00)
[2018-10-24] MEDS: Docusate 100mg cap ORAL SCH ×3 (09:04→18:00)
[2018-10-24] MEDS: Metoprolol 25mg tab ORAL SCH ×2 (09:04→21:52)
[2018-10-24] MEDS: Aspirin Baby 81mg ORAL SCH (09:04)
[2018-10-24] MEDS: Imdur 30mg tab ORAL SCH (09:05)
[2018-10-24 11:55] VITALS: BP 128/64
--- NOTE | 2018-10-24 13:51 | Nephrology Progress Note ---
Assessment/Plan Problem List: (1) Pulmonary congestion (2) ESRD (end stage renal disease) on dialysis (3) Anemia in chronic kidney disease (CKD) Assessment Mild CHF ESRD Anemia of CKD Elevated troponin Hypertensive kidney disease Plan ASA Renal diet HD in am 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 Phos binder 2D echo pending optimize cardiac status Subjective ROS Limited/Unobtainable: No Objective Objective Last 24 Hour Vital Signs Date Time Temp Pulse Resp B/P (MAP) Pulse Ox O2 Delivery O2 Flow Rate FiO2 10/24/18 12:46 128/64 10/24/18 12:00 62 10/24/18 11:55 98.4 65 20 128/64 (85) 96 10/24/18 09:05 125/61 10/24/18 09:04 76 125/61 10/24/18 09:00 Nasal Cannula 2.0 10/24/18 08:00 99.1 76 22 125/61 (82) 96 10/24/18 08:00 76 10/24/18 06:50 143/70 10/24/18 04:00 98.8 74 20 143/70 (94) 97 10/24/18 03:38 75 10/24/18 00:00 98.3 75 18 143/64 (90) 95 10/24/18 00:00 143/64 10/23/18 23:18 71 10/23/18 22:28 79 140/70 10/23/18 22:21 98.6 79 18 140/70 (93) 98 10/23/18 21:00 Nasal Cannula 2.0 10/23/18 20:00 99.4 73 131/65 (87) 10/23/18 18:43 73 10/23/18 18:09 124/64 10/23/18 16:00 98.0 77 21 124/64 (84) 97 10/23/18 15:35 77 Intake and Output 10/23/18 10/24/18 19:00 07:00 Intake Total 360 ml Balance 360 ml Intake Oral 360 ml # Bowel Movements 1 Laboratory Tests 10/24/18 02:18: Stool Occult Blood [Pending] 10/24/18 06:10: White Blood Count 4.0L, Red Blood Count 2.82L, Hemoglobin 8.8L, Hematocrit 28.9L , Mean Corpuscular Volume 102H, Mean Corpuscular Hemoglobin 31.4H, Mean Corpuscular Hemoglobin Concent 30.6L, Red Cell Distribution Width 18.2H, Platelet Count 110L, Mean Platelet Volume 7.2, Neutrophils (%) (Auto) 50.9, Lymphocytes (%) (Auto) 33.3, Monocytes (%) (Auto) 14.1H, Eosinophils (%) (Auto) 1.1, Basophils (%) (Auto) 0.6, Sodium Level 137, Potassium Level 5.0, Chloride Level 101, Carbon Dioxide Level 27, Anion Gap 9, Blood Urea Nitrogen 39H, Creatinine 7.2H, Estimat Glomerular Filtration Rate , Glucose Level 97, Calcium Level 8.1L, Phosphorus Level 3.4, Total Bilirubin 0.3, Aspartate Amino Transf ( AST/SGOT) 23, Alanine Aminotransferase (ALT/SGPT) 11L, Alkaline Phosphatase 104 , Troponin I 0.126H, C-Reactive Protein, Quantitative 6.6H, Pro-B-Type Natriuretic Peptide > 01355V, Total Protein 7.8, Albumin 2.7L, Globulin 5.1, Albumin/Globulin Ratio 0.5L Height (Feet): 5 Height (Inches): 4.00 Weight (Pounds): 134 General Appearance: no apparent distress Respiratory/Chest: decreased breath sounds Abdomen: soft Jostin Zelaya MD Oct 24, 2018 13:51
--- NOTE | 2018-10-24 13:53 | NUR ---
CASE MANAGEMENT:REVIEW FROM HOME TO ER CC: SOB. SAT 89% ON RA UPON ARRIVAL PMH: ESRD ON HD -- SI: DYSPNEA. RENAL FAILURE. PULMONARY CONGESTION 99.8 100 23 184/120 89% ON RA PLT-119 K+5.5 BUN+34 CR+6.9 IS: PLACED ON 2L/NC NITRO 1" TO CW TYLENOL PO CXR : TO TELEMETRY INTERQUAL CRITERIA MET
--- NOTE | 2018-10-24 14:04 | NUR ---
NURSE NOTES: pt resping, no distress noted, HD 10/25/18. spoke with Dilcia, notified.
[2018-10-24 15:53] VITALS: BP 137/73
--- NOTE | 2018-10-24 17:05 | NUR ---
NURSE NOTES: Report received from GLADIS Griffin. Patient AOx4. In RA denies any SOB or pain. Bed on lowest position, side rails upx2, brakes engaged, call light within easy reach.
--- NOTE | 2018-10-24 17:06 | NUR ---
HAND-OFF: Report given to LITO GRIFFITH.
--- NOTE | 2018-10-24 19:30 | NUR ---
NURSE NOTES: Received report from Joseph Monroy RN. Pt is resting in the bed w/o respiratory distress in 2L NC. Daughter, Vale is at the bedside and requested to het medical record when pt is discharged. Pt is in pain level of 10/10, requesting tylenol 4, will follow up with pain medication. Safety measures are applied w/ bed alarm on, side rails up x3, bed in lowest position, breaks are engaged. Call light and side table are w/in reach. Will follow plans of care. Addendum: 10/24/18 at 2108 by VANITA LORENZO RN called and left message second time to PCP at for pain med req. Awaiting call back. Addendum: 10/24/18 at 2156 by VANITA LORENZO RN called and place the orders. Will carry out the order.
--- NOTE | 2018-10-24 19:52 | NUR ---
HAND-OFF: Report given to Semaj Boogie RN.
[2018-10-24 20:00] VITALS: BP 136/62
[2018-10-24] MEDS: Tylenol #3 tab (300mg/30mg) ORAL PRN (23:10)
--- NOTE | 2018-10-24 23:32 | General Progress Note ---
Assessment/Plan Assessment/Plan Assessment/Plan # Anemia of chronic disease -- hgb appeox 8-10 baseline, likely related to ckd --> anemia panel has been reviewed --> results are pending --> hgb goal >7 # Thrombocytopenia appeox 100-150k, decreased from baseline --> smear pending -->119-->118-->110 --> hep and hiv ordered # Acute Hypoxic Respiratory Failure --> as per pulm # Fluids Overload # ESRD on HD # Pulmonary Vascular Congestion # Hyperkalemia --> K 5.5, hd per nephro, nephro consulted by ED for HD --> appreciate neprho recs # HTN Emergency --> bp >200/100s in ED during evaluation --> sob with mild elevated troponin/bun in renal failure pt --> imdur given in ED --> holding off on acei/arb Appreciate consultation greatly! Subjective Constitutional: Denies: no symptoms, chills, diaphoresis, fever, malaise, weakness, other HEENT: Denies: no symptoms, eye pain, blurred vision, tearing, double vision, ear pain, ear discharge, nose pain, nose congestion, throat pain, throat swelling, mouth pain, mouth swelling, other Cardiovascular: Denies: no symptoms, chest pain, edema, irregular heart rate, lightheadedness, palpitations, syncope, other Respiratory: Denies: no symptoms, cough, orthopnea, shortness of breath, SOB with excertion, SOB at rest, sputum, stridor, wheezing, other Gastrointestinal/Abdominal: Denies: no symptoms, abdomen distended, abdominal pain, black stools, tarry stools, blood in stool, constipated, diarrhea, difficulty swallowing, nausea, poor appetite, poor fluid intake, rectal bleeding , vomiting, other Genitourinary: Denies: no symptoms, burning, discharge, frequency, flank pain, hematuria, incontinence, pain, urgency, other Neurologic/Psychiatric: Denies: no symptoms, anxiety, depressed, emotional problems, headache, numbness, paresthesia, pre-existing deficit, seizure, tingling, tremors, weakness, other Endocrine: Denies: no symptoms, excessive sweating, flushing, intolerance to cold, intolerance to heat, increased hunger, increased thirst, increased urine, unexplained weight gain, unexplained weight loss, other Hematologic/Lymphatic: Denies: no symptoms, anemia, easy bleeding, easy bruising, other Allergies: Coded Allergies: No Known Allergies (Verified Allergy, Unknown, 04/07/08) Subjective 10/23/18: Pt is seen in the room, resting in bed, on dialysis, cbc reviewed, no events 10/24/18: Pt is resting in bed, awake and alert, cbc reviewed, plt count remains low, no events reported Objective Last 24 Hour Vital Signs Date Time Temp Pulse Resp B/P (MAP) Pulse Ox O2 Delivery O2 Flow Rate FiO2 10/24/18 21:52 136/62 10/24/18 21:52 72 136/62 10/24/18 16:00 67 10/24/18 15:53 99.0 72 21 137/73 (94) 95 10/24/18 12:46 128/64 10/24/18 12:00 62 10/24/18 11:55 98.4 65 20 128/64 (85) 96 10/24/18 09:05 125/61 10/24/18 09:04 76 125/61 10/24/18 09:00 Nasal Cannula 2.0 10/24/18 08:00 99.1 76 22 125/61 (82) 96 10/24/18 08:00 76 10/24/18 06:50 143/70 10/24/18 04:00 98.8 74 20 143/70 (94) 97 10/24/18 03:38 75 10/24/18 00:00 98.3 75 18 143/64 (90) 95 10/24/18 00:00 143/64 Intake and Output 10/23/18 10/24/18 19:00 07:00 Intake Total 360 ml Balance 360 ml Intake Oral 360 ml # Bowel Movements 1 Laboratory Tests 10/24/18 02:18: Stool Occult Blood [Pending] 10/24/18 06:10: White Blood Count 4.0L, Red Blood Count 2.82L, Hemoglobin 8.8L, Hematocrit 28.9L , Mean Corpuscular Volume 102H, Mean Corpuscular Hemoglobin 31.4H, Mean Corpuscular Hemoglobin Concent 30.6L, Red Cell Distribution Width 18.2H, Platelet Count 110L, Mean Platelet Volume 7.2, Neutrophils (%) (Auto) 50.9, Lymphocytes (%) (Auto) 33.3, Monocytes (%) (Auto) 14.1H, Eosinophils (%) (Auto) 1.1, Basophils (%) (Auto) 0.6, Sodium Level 137, Potassium Level 5.0, Chloride Level 101, Carbon Dioxide Level 27, Anion Gap 9, Blood Urea Nitrogen 39H, Creatinine 7.2H, Estimat Glomerular Filtration Rate , Glucose Level 97, Calcium Level 8.1L, Phosphorus Level 3.4, Total Bilirubin 0.3, Aspartate Amino Transf ( AST/SGOT) 23, Alanine Aminotransferase (ALT/SGPT) 11L, Alkaline Phosphatase 104 , Troponin I 0.126H, C-Reactive Protein, Quantitative 6.6H, Pro-B-Type Natriuretic Peptide > 31175P, Total Protein 7.8, Albumin 2.7L, Globulin 5.1, Albumin/Globulin Ratio 0.5L Height (Feet): 5 Height (Inches): 4.00 Weight (Pounds): 134 Objective PE: General Appearance: WD/WN, alert, mild distress Lines, tubes and drains: peripheral HEENT: normocephalic, atraumatic, mucous membranes moist, PERRL Neck: non-tender, normal alignment, supple, normal inspection Respiratory/Chest: chest wall non-tender, lungs clear, other - mild crackles appreciated b/l lung kwong Cardiovascular/Chest: normal peripheral pulses, normal rate, regular rhythm Abdomen: normal bowel sounds, non tender, soft, no organomegaly, no mass Extremities: normal range of motion, non-tender, normal inspection Skin Exam: normal pigmentation, warm/dry Neurologic: charging manipulator II-XII grossly normal, no motor/sensory deficits, alert, oriented x 3, responsive, normal mood/affect Bennie Scott MD Oct 24, 2018 23:32
[2018-10-25] VITALS: BP 140/74
--- NOTE | 2018-10-25 02:45 | NUR ---
NURSE NOTES: Informed pt to ask family to bring tylenol 4 med since [facility] has tylenol 3 only.
[2018-10-25 04:00] VITALS: BP 125/56
[2018-10-25] MEDS: HydrALAZINE 50mg tab ORAL SCH ×2 (06:32→13:08)
[2018-10-25] MEDS: Tylenol #3 tab (300mg/30mg) ORAL PRN ×2 (06:33→12:56)
--- NOTE | 2018-10-25 07:25 | NUR ---
NURSE NOTES: Report received from GLADIS Boogie. Patient awake. In RA, denies any SOB or pain at this time. Reminder given of dialysis scheduled today. Bed on lowest position, brakes engaged, side rails upx2. Call light within easy reach.
--- NOTE | 2018-10-25 07:25 | NUR ---
NURSE NOTES: HAND-OFF: Report given to Joseph Monroy RN.
[2018-10-25 08:00] VITALS: BP 119/57
--- NOTE | 2018-10-25 08:02 | Discharge Summary ---
Discharge Summary Hospital Course Date of Admission Oct 22, 2018 at 12:57 Date of Discharge 10/25/18 Admitting Diagnosis dyspnea, renal failure HPI Italia Oropeza is a 78 year old female who was admitted on Oct 22, 2018 at 12: 57 for Dyspnea,Renal Failure 78 yo female with h/o esrd on hd presents with SOB. States patient her last HD was on Sunday. Patient is poor historian. Patient has been having progressive sob over the past 2 days. Admits to coughs with white sputum productiong. Denies fevers/chills/nausea/vomiting/abd pain/cp. CXR reviewed showing pulm vasc congestion. nephrology consulted for HD by ED K noted to be elevated with htn emergency requiring o2 ncl, pulmv vasc congestion on cxr, required HD doing well now after HD vitals table patient states she has all home medications at home but does not remember the names of the meds, states she does not need medications from dc home after HD this AM. breathing well of o2ncl now. 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 improving now. - sob with mild elevated troponin/bun in renal failure pt - imdur given in ED - pt poor historian, does not know all home meds - HD per nephro - metoprolol 25mg bid, hydralazine 25 mg q6hr, imdur started.. bp improving with this regiment, HD done yesterday.. TTE pending, will wait for results and monitor on new bp regiment - hold off on acei considering hyperkalemia - bp improved diet: renal hd Code Status: Full Hospital Classification Declaration: Based on this initial evaluation, and depending on the patient's clinical course, I anticipate that this patient will require hospitalization for 2-3 days for dialysis, sx control, htn emergency, sob and close respiratory/hemodynamic monitoring. I have reviewed all imaging, labs and medications Disposition: Once the patient is stable to leave the hospital, I anticipate the patient will likely be discharged to the following environment: home I spent over 40 minutes on this patient's case, discharge/dispo planning and counseling and/or care coordination. Discussed with patient/family, nursing staff, SW/CM regarding clinical status, treatment course, and disposition planning. Time of note may not reflect time of encounter. --- Date of Discussion: 10/22/18 A [id number] discussion with the patient regarding the patient's advanced care planning took place during this hospitalization on the above date. The discussion included the explanation and discussion of advance directives and associated forms/documents, as well as the patient's current code status. We also discussed at length the patient's medical conditions (both acute and chronic), general prognosis, treatment options, and goals of care. The following summarizes the discussion: Advance Care Planning/Goals of Care: - Will attempt to fill out an AD and/or POLST with the patient prior to discharge, if not already completed - Continue current evaluation and management of any acute and chronic medical issues - Will continue to support the patient/family - Will continue to discuss both short- and long-term goals of care DPOA-HC/Surrogate Decision Maker: None currently appointed Code Status: Full Code AD Forms/Documents Completed: Deferred A total of 31 minutes was spent on this discussion, including counseling, answering questions, and completing, if any, pertinent advanced care planning forms/documents. Discharge Condition Upon Discharge: stable Discharge Disposition Patient was discharged to home Discharge Diagnoses: (1) Hypertensive emergency without congestive heart failure (2) Pulmonary congestion (3) Renal failure (4) ESRD (end stage renal disease) on dialysis Lucie Polk MD Oct 25, 2018 08:02
[2018-10-25 08:58] LABS: HEMATOCRIT 28.5 % (37.0-47.0); HEMOGLOBIN 8.5 G/DL (12.0-16.0); MEAN CORPUSCULAR VOLUME 102 FL (80-99); PLATELET COUNT 97 K/UL (150-450); RED BLOOD COUNT 2.79 M/UL (4.20-5.40); RED CELL DISTRIBUTION WIDTH 17.7 % (11.6-14.8); WHITE BLOOD COUNT 3.5 K/UL (4.8-10.8)
[2018-10-25] MEDS: Heparin 5000 units/ml inj SUBQ SCH (09:00)
[2018-10-25] MEDS: Metoprolol 25mg tab ORAL SCH (09:00)
[2018-10-25 09:10] LABS: ANION GAP 11 mmol/L (5-15); BLOOD UREA NITROGEN 52 mg/dL (7-18); CALCIUM 7.7 MG/DL (8.5-10.1); CARBON DIOXIDE 24 MMOL/L (21-32); CHLORIDE 101 MMOL/L (98-107); POTASSIUM 4.9 MMOL/L (3.5-5.1); SODIUM 136 MMOL/L (136-145)
--- NOTE | 2018-10-25 09:20 | NUR ---
NURSE NOTES: Patient on dialysis.
--- NOTE | 2018-10-25 11:20 | NUR ---
NURSE NOTES: Patient voiced desire to be discharged. "I want to go home today could you please work on that....." Informed Patient that discharge order is on and after dialysis and 2 D eco results will be discharged.
[2018-10-25 12:00] VITALS: BP 125/63
[2018-10-25] MEDS: Aspirin Baby 81mg ORAL SCH (12:57)
[2018-10-25] MEDS: Imdur 30mg tab ORAL SCH (12:57)
[2018-10-25] MEDS: Docusate 100mg cap ORAL SCH ×2 (12:57→13:00)
[2018-10-25 13:08] VITALS: BP 125/63
--- NOTE | 2018-10-25 13:30 | Nephrology Progress Note ---
Assessment/Plan Problem List: (1) Pulmonary congestion (2) ESRD (end stage renal disease) on dialysis (3) Anemia in chronic kidney disease (CKD) Assessment Mild CHF ESRD Anemia of CKD Elevated troponin Hypertensive kidney disease Plan ASA Renal diet HD in process - tolerating well. 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 Phos binder 2D echo pending optimize cardiac status Subjective ROS Limited/Unobtainable: No Objective Objective Last 24 Hour Vital Signs Date Time Temp Pulse Resp B/P (MAP) Pulse Ox O2 Delivery O2 Flow Rate FiO2 10/25/18 13:08 125/63 10/25/18 12:57 125/63 10/25/18 12:00 97.0 72 18 125/63 (83) 95 10/25/18 09:00 71 119/57 10/25/18 09:00 Room Air 10/25/18 08:00 70 10/25/18 08:00 97.5 71 18 119/57 (77) 98 10/25/18 06:32 125/56 10/25/18 04:00 98.1 66 17 125/56 (79) 96 10/25/18 03:27 65 10/25/18 00:00 98.1 71 18 140/74 (96) 96 10/24/18 23:42 70 10/24/18 21:52 136/62 10/24/18 21:52 72 136/62 10/24/18 21:00 Nasal Cannula 2.0 10/24/18 20:00 97.8 72 18 136/62 (86) 96 10/24/18 19:54 75 10/24/18 16:00 67 10/24/18 15:53 99.0 72 21 137/73 (94) 95 Laboratory Tests 10/25/18 08:45: White Blood Count 3.5L, Red Blood Count 2.79L, Hemoglobin 8.5L, Hematocrit 28.5L , Mean Corpuscular Volume 102H, Mean Corpuscular Hemoglobin 30.6, Mean Corpuscular Hemoglobin Concent 29.9L, Red Cell Distribution Width 17.7H, Platelet Count 97L, Mean Platelet Volume 7.5, Neutrophils (%) (Auto) , Lymphocytes (%) (Auto) , Monocytes (%) (Auto) , Eosinophils (%) (Auto) , Basophils (%) (Auto) , Differential Total Cells Counted 100, Neutrophils % ( Manual) 58, Lymphocytes % (Manual) 31, Monocytes % (Manual) 10, Eosinophils % ( Manual) 0, Basophils % (Manual) 0, Myelocytes % 1H, Band Neutrophils 0, Platelet Estimate DecreasedL, Platelet Morphology Normal, Hypochromasia 1+, Anisocytosis 1+, Macrocytosis 1+, Sodium Level 136, Potassium Level 4.9, Chloride Level 101, Carbon Dioxide Level 24, Anion Gap 11, Blood Urea Nitrogen 52H, Creatinine 9.0H, Estimat Glomerular Filtration Rate , Glucose Level 172H, Calcium Level 7.7L Height (Feet): 5 Height (Inches): 4.00 Weight (Pounds): 135 General Appearance: no apparent distress Cardiovascular: normal rate Respiratory/Chest: decreased breath sounds Abdomen: soft Objective no change Jostin Zelaya MD Oct 25, 2018 13:30
--- NOTE | 2018-10-25 15:30 | NUR ---
NURSE NOTES: Patient aware of discharge orders. Daughter at bedside. Patient's VS stable. Dialysis done, 2L out. VS stable. Belongings checked with Patient and daughter, signed and filed. Tele monitor removed, cleaned and stored. IV and ID band removed. Patient folder given, teaching done. Patient to follow up with primary doctor and [facility] within a week. Medical information release form signed by Patient/daughter and submitted to medical records office. Patient left the floor safely with daughter.
--- NOTE | 2018-10-26 01:44 | General Progress Note ---
Assessment/Plan Assessment/Plan Assessment/Plan # Anemia of chronic disease -- hgb appeox 8-10 baseline, likely related to ckd --> anemia panel has been reviewed --> results are pending --> hgb goal >7 # Thrombocytopenia appeox 100-150k, decreased from baseline --> smear pending -->119-->118-->110 --> hep and hiv ordered # Acute Hypoxic Respiratory Failure --> as per pulm # Fluids Overload # ESRD on HD # Pulmonary Vascular Congestion # Hyperkalemia --> K 5.5, hd per nephro, nephro consulted by ED for HD --> appreciate neprho recs # HTN Emergency --> bp >200/100s in ED during evaluation --> sob with mild elevated troponin/bun in renal failure pt --> imdur given in ED --> holding off on acei/arb Appreciate consultation greatly! Subjective Constitutional: Denies: no symptoms, chills, diaphoresis, fever, malaise, weakness, other HEENT: Denies: no symptoms, eye pain, blurred vision, tearing, double vision, ear pain, ear discharge, nose pain, nose congestion, throat pain, throat swelling, mouth pain, mouth swelling, other Cardiovascular: Denies: no symptoms, chest pain, edema, irregular heart rate, lightheadedness, palpitations, syncope, other Respiratory: Denies: no symptoms, cough, orthopnea, shortness of breath, SOB with excertion, SOB at rest, sputum, stridor, wheezing, other Gastrointestinal/Abdominal: Denies: no symptoms, abdomen distended, abdominal pain, black stools, tarry stools, blood in stool, constipated, diarrhea, difficulty swallowing, nausea, poor appetite, poor fluid intake, rectal bleeding , vomiting, other Genitourinary: Denies: no symptoms, burning, discharge, frequency, flank pain, hematuria, incontinence, pain, urgency, other Neurologic/Psychiatric: Denies: no symptoms, anxiety, depressed, emotional problems, headache, numbness, paresthesia, pre-existing deficit, seizure, tingling, tremors, weakness, other Endocrine: Denies: no symptoms, excessive sweating, flushing, intolerance to cold, intolerance to heat, increased hunger, increased thirst, increased urine, unexplained weight gain, unexplained weight loss, other Hematologic/Lymphatic: Denies: no symptoms, anemia, easy bleeding, easy bruising, other Allergies: Coded Allergies: No Known Allergies (Verified Allergy, Unknown, 04/07/08) Subjective 10/23/18: Pt is seen in the room, resting in bed, on dialysis, cbc reviewed, no events 10/24/18: Pt is resting in bed, awake and alert, cbc reviewed, plt count remains low, no events reported 10/25/18 Pt is seen in the room, daughter at bed side , dialysis done, condition is sable, no evens. Objective Last 24 Hour Vital Signs Date Time Temp Pulse Resp B/P (MAP) Pulse Ox O2 Delivery O2 Flow Rate FiO2 10/25/18 13:08 125/63 10/25/18 12:57 125/63 10/25/18 12:00 97.0 72 18 125/63 (83) 95 10/25/18 12:00 73 10/25/18 09:00 71 119/57 10/25/18 09:00 Room Air 10/25/18 08:00 70 10/25/18 08:00 97.5 71 18 119/57 (77) 98 10/25/18 06:32 125/56 10/25/18 04:00 98.1 66 17 125/56 (79) 96 10/25/18 03:27 65 Intake and Output 10/25/18 10/26/18 19:00 07:00 Intake Total 360 ml Balance 360 ml Intake Oral 360 ml Laboratory Tests 10/25/18 08:30: Phosphorus Level 4.1, Troponin I 0.057H 10/25/18 08:45: White Blood Count 3.5L, Red Blood Count 2.79L, Hemoglobin 8.5L, Hematocrit 28.5L , Mean Corpuscular Volume 102H, Mean Corpuscular Hemoglobin 30.6, Mean Corpuscular Hemoglobin Concent 29.9L, Red Cell Distribution Width 17.7H, Platelet Count 97L, Mean Platelet Volume 7.5, Neutrophils (%) (Auto) , Lymphocytes (%) (Auto) , Monocytes (%) (Auto) , Eosinophils (%) (Auto) , Basophils (%) (Auto) , Differential Total Cells Counted 100, Neutrophils % ( Manual) 58, Lymphocytes % (Manual) 31, Monocytes % (Manual) 10, Eosinophils % ( Manual) 0, Basophils % (Manual) 0, Myelocytes % 1H, Band Neutrophils 0, Platelet Estimate DecreasedL, Platelet Morphology Normal, Hypochromasia 1+, Anisocytosis 1+, Macrocytosis 1+, Sodium Level 136, Potassium Level 4.9, Chloride Level 101, Carbon Dioxide Level 24, Anion Gap 11, Blood Urea Nitrogen 52H, Creatinine 9.0H, Estimat Glomerular Filtration Rate , Glucose Level 172H, Calcium Level 7.7L Height (Feet): 5 Height (Inches): 4.00 Weight (Pounds): 135 Objective PE: General Appearance: WD/WN, alert, mild distress Lines, tubes and drains: peripheral HEENT: normocephalic, atraumatic, mucous membranes moist, PERRL Neck: non-tender, normal alignment, supple, normal inspection Respiratory/Chest: chest wall non-tender, lungs clear, other - mild crackles appreciated b/l lung kwong Cardiovascular/Chest: normal peripheral pulses, normal rate, regular rhythm Abdomen: normal bowel sounds, non tender, soft, no organomegaly, no mass Extremities: normal range of motion, non-tender, normal inspection Skin Exam: normal pigmentation, warm/dry 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
== END 2018-10-25 15:30 | disposition home or self-care (01) | DRG 189 ==
LOC: EMR 12:49 → 2E 12:57 → EDBEDREQ 13:37 → 2E 10-24 16:19
PROC: 5A1D70Z Performance of Urinary Filtration, Intermittent, Less than 6 Hours Per Day (ICD-10-PCS; principal; 2018-10-24)
DX: J96.01 Acute respiratory failure with hypoxia (principal); N18.6 End stage renal disease; I16.1 Hypertensive emergency; I12.0 Hypertensive chronic kidney disease with stage 5 chronic kidney disease or end stage renal disease; D63.1 Anemia in chronic kidney disease; D69.6 Thrombocytopenia, unspecified; E87.5 Hyperkalemia; E87.70 Fluid overload, unspecified; Z99.2 Dependence on renal dialysis
CPT/HCPCS: 36415; 71045; 80048; 80053; 80061; 82270; 82550; 82553; 82607; 82728; 82746; 82977; 83540; 83550; 83735; 83880; 84100; 84165; 84443; 84484; 84550; 85007; 85025; 85044; 85060; 85384; 86140; 86703; 86705; 86709; 86803; 87081; 87340; 93306; 94640; 94664; 94760; 99285